=== PATIENT | male | born 1975 | race Caucasian/White ===

== ENCOUNTER → 2018-10-25 11:29 | Outpatient (CLI) | payer OTHER, SELFPAY ==
--- NOTE | 2018-10-25 11:44 | RAD_ITS ---
HISTORY: HEEL NUMBNESS COMPARISON: None FINDINGS: XR Foot Min 3 Views: No significant findings. No fracture or bony normality. Joint spaces appear preserved. No bony erosions. The plantar arch is maintained. As visualized, the soft tissues are negative. RAD/Foot min 3 Views IMPRESSION: Negative exam, right foot. No suspicious findings. at [id number] Reported and signed by: Jordan Parish MD Electronically Signed: Jordan Parish, at 4:16 EST Tel , Service support ,
--- NOTE | 2018-10-25 11:45 | RAD_ITS ---
HISTORY: LOW BACK PAIN AND RIGHT HEEL NUMBNESS COMPARISON: None FINDINGS: XR Spine Lumbar Min 5 views Lumbar vertebra show normal height and alignment. No fracture or suspicious bony lesion. L2-3 mild disc space narrowing accompanying by endplate spurring. The posterior elements appear intact. No spondylolisthesis. RAD/L/S Spine Min 4 Views IMPRESSION: 1. L2-3 degenerative disc disease and spondylosis. 2. Normal lumbar vertebral alignment. 3. No fracture or acute disease. at [id number] Reported and signed by: Jordan Parish MD Electronically Signed: Jordan Parish, at 4:43 EST Tel , Service support ,
== END ==
PROVIDERS: Referring Provider Nurse Practitioner Gerontology; Visit Provider Nurse Practitioner Gerontology
DX: R20.0 Anesthesia of skin (principal)
CPT/HCPCS: 72110; 73630

== ENCOUNTER → 2021-07-17 | Outpatient (CLI) | payer OTHER, SELFPAY ==
[2021-07-17 10:30] LABS: Absolute Lymphocyte Count 0.65 X10^3/uL (0.83-4.51); Absolute Neutrophil Count 3.1 X10^3/uL (2.0-7.7); Basophil# 0.02 X10^3/uL; Basophil% 0.4 % (0-1); Eosinophil# 0.01 X10^3/uL; Eosinophils% 0.2 % (0-5); Hematocrit 48.8 % (40-54); Hemoglobin 17.2 g/dL (13.0-16.5); Lymphocyte # 0.65 X10^3/ul (0.83-4.51); Lymphocyte % 13.3 % (19-41); Mean Corp Hgb Conc 35.2 g/dL (32-36); Mean Corpuscular Hgb 33.1 pg (27.0-32.0); Mean Platelet Vol. 10.1 fl (6.2-12.0); Monocyte# 1.14 X10^3/uL; Monocyte% 23.4 % (0-10); NRBC Flagged by Analyzer 0 % (0-5); Neutrophil # 3.05 X10^3/uL (2.7-7.7); Neutrophil % 62.7 % (47-70); Platelet Count 215 K/mm3 (150-450); RBC Distribution Width CV 11.8 % (11.6-14.6); RBC Distribution Width SD 40.6 fl (35.1-43.9); Red Blood Count 5.19 M/mm3 (4.6-6.2); White Blood Count 4.9 K/mm3 (4.4-11.0)
[2021-07-17 10:47] LABS: ALB/GLOB Ratio 1.1 RATIO (0.9-2.4); AST(SGOT) 36 U/L (15-37); Alanine Aminotransfer ALT/SGPT 45 U/L (16-61); Albumin, Serum 4.1 g/dL (3.2-5.0); Alkaline Phosphatase 59 U/L (45-117); Anion Gap 7 (5-15); BUN 13 mg/dL (7-18); BUN/Creat Ratio 11.4 RATIO (10-20); Calcium,Total 9.3 mg/dL (8.5-10.1); Chloride 105 mmol/L (98-107); Creatinine, Serum 1.14 mg/dL (0.70-1.30); EST Glomerular Filtration Rate 73 mL/min (>60); Est Glom Filt Rate - Afr Amer 88 mL/min (>60); Globulin 3.9 g/dL (2.2-4.2); Glucose 90 mg/dL (74-106); Sodium Level 141 mmol/L (136-145); Thyroid Stim Hormone (TSH) 1.14 uIU/mL (0.358-3.74); Troponin-I HS 8 pg/mL (3.0-78.0)
== END | disposition home or self-care (01) ==
PROVIDERS: Referring Provider Nurse Practitioner; Visit Provider Nurse Practitioner
DX: I48.91 Unspecified atrial fibrillation (principal)
CPT/HCPCS: 80053; 84443; 84484; 85025

== ENCOUNTER 2025-08-24 08:58 | Day surgery (SDC) | payer OTHER, SELFPAY ==
--- NOTE | 2025-08-22 15:14 | PAT.ANE_ITS ---
Pre-Assessment Diagnosis/Proposed Procedure Planned Operative Procedure(s): COLONOSCOPY Anesthesia History Anesthesia History - manager storage: Anesthesia History - manager storage Hx Hospitalization No 08/21/25 15:26 Any Problems With Anesthesia No 08/21/25 15:26 Cholinesterase deficiency No 08/21/25 15:26 You/Your Family Experience No 08/21/25 15:26 fever (hyperthermia) with Relationship Recent Exposure to Contagious Disease Does patient have nerve No 08/21/25 15:26 stimulator Patient instructed to have device shut off --Does patient have Pacemaker or ICD? When Was Last Pacemaker Check QUESTION #4 FULL TEXT: You/Your Family Experience fever (hyperthermia) with Anesthesia Last Oral Intake Last Oral intake: Last Oral Intake NPO since Meds taken in AM with sips of water? Meds patient instructed to take am of surgery PONV PONV - manager storage: PONV - manager storage Female No 08/21/25 15:26 HX of Motion Sickness No 08/21/25 15:26 HX of N/V After Surgery No 08/21/25 15:26 Non-Smoker Yes 08/21/25 15:26 Duration of Surgery greater No 08/21/25 15:26 than 60 minutes Number of Risk Factors 1 08/21/25 15:26 PONV Score Low Risk 08/21/25 15:26 Respiratory Assessment Respiratory Assessment - manager storage: Respiratory Tract Infection Hx - manager storage Hx Respiratory Tract Infection No 08/21/25 15:26 STOP Sleep Apnea STOP Sleep Apnea - manager storage: STOP Sleep Apnea - manager storage Hx Hypertension No 08/21/25 15:26 Hx Sleep Apnea No 08/21/25 15:26 CPAP BIPAP Do you snore loudly (louder No 08/21/25 15:26 than talking or can be heard Do you often feel tired/ No 08/21/25 15:26 fatigued/ sleepy during daytime? Has anyone observed you stop No 08/21/25 15:26 breathing during sleep? STOP Results Negative 08/21/25 15:26 QUESTION #5 FULL TEXT : Do you snore loudly (louder than talking or can be heard through closed doors)? 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 Specify any problems Hx of Preganancy in last 3 N/A 08/21/25 15:26 Months Nurse Filling Out Transfusion VCHRISTIN 08/21/25 15:26 & Questions: Date: 08/21/25 08/21/25 15: Time: 08/21/25 15:26 Patient unable to answer at this time (ie. confused, unrespo /Reproduction History /Reproductive History - manager storage: /Reproductive Hx- manager storage Hx Now Gestational Age (in weeks): EDC: Hx Hx Para Hx Section SAB PFSH Medical History (Updated 08/21/25 @ 15:26 by Heidi Brunson) Wears glasses Wears contact lenses Anxiety Non-smoker History of echocardiogram History of stress test Cardiology follow-up encounter Atrial fibrillation Shortness of breath Home Medications ?Medication ?Instructions ?Recorded ?Last Taken ?Type Lactobacillus acidophilus 10 100 mmu cells PO DAILY Unknown History billion cell capsule (NewFlora) cyanocobalamin (vitamin B-12) 1,000 mcg PO DAILY 08/02 Unknown History 1,000 mcg capsule digestive enzymes (CompleteGest 1 cap PO DAILY PRN SUP PLEMENT 08/02/25 Unknown History capsule) Allergy/AdvReac Type Severity Reaction Status Date / Time No Known Allergies Allergy Verified 08/21/25 15:23 Family History (Updated 07/27/25 @ 08:27 by Gayla Vergara) Mother Cancer cervical Grandmother Myocardial infarction Surgical History H/O inguinal hernia repair Social History (Updated 02/05/20 @ 09:33 by Migdalia Gardner PA, PA) Smoking Status: Never smoker alcohol intake: current alcohol intake frequency: holidays/special occasions only Audit: Pertinent Findings Pertinent Findings EKG Perinent findings: August 16, 2025. Sinus rhythm with first-degree AV block. Additional pertinent findings: 08/16/2025. CT with and without contrast. 1. Stable moderate dilation of the aortic root-4.6 cm. 2. No aortic stenosis. Recommendation Anesthesia Recommendation Anesthesia recommendation: OPTIMIZED for anesthesia
[2025-08-24] VITALS (8 sets, daily range): BP systolic 83–123; BP diastolic 61–78; PULSE 50–66; RESP 14–16; TEMP 36.5; O2SAT 95–98; BMI 23.8
[2025-08-24] MEDS: Lactated Ringers 1,000 ML 15 ML IV (09:30)
--- NOTE | 2025-08-24 09:31 | PCM.HP.STD ---
HPI - General General Date of Admission: 08/24/25 Date of Service: 08/24/25 Chief Complaint: Change in bowel habits HPI Narrative DONTAE ORTIZ, is a 49 M who presents with the Chief Complaint: bowel movements during the night Patient referred to GI for symptoms over the past 2 years. Patient notes his symptoms have worsened over the past year. He notes waking up almost daily between the hours of 3 to 5 AM with racing heart and need to have a bowel movement. This is frustrating for him as it will wake him up. He does endorse having a very stressful job which he thinks has affected his bowel movements. He denies having other bowel movements throughout the day. Bowel movements are typically soft but not watery. Patient did see his occupational therapist's assistant at his work which did a GI map. He is currently being treated with probiotics and fiber. He has been doing this for about a week and has not noticed a huge difference. He denies blood in his stool, constipation, abdominal pain, nausea vomiting or heartburn. Last colonoscopy was in 2011 in [place] due to rectal bleeding which was without abnormalities. [facility] Medical History Wears glasses Wears contact lenses Anxiety Non-smoker History of echocardiogram History of stress test Cardiology follow-up encounter Atrial fibrillation Shortness of breath Home Medications ?Medication ?Instructions ?Recorded ?Last Taken ?Type Lactobacillus acidophilus 10 100 mmu cells PO DAILY 08/02/25 Unknown History billion cell capsule (NewFlora) cyanocobalamin (vitamin B-12) 1,000 mcg PO DAILY 08/02/25 Unknown History 1,000 mcg capsule digestive enzymes (CompleteGest 1 cap PO DAILY PRN SUPPLEMENT 08/02/25 Unknown History capsule) Allergy/AdvReac Type Severity Reaction Status Date / Time No Known Allergies Allergy Verified 08/24/25 09:25 Family History Mother Cancer cervical Grandmother Myocardial infarction Surgical History H/O inguinal hernia repair Social History Smoking Status: Never smoker alcohol intake: current alcohol intake frequency: holidays/special occasions only ROS Constitutional Constitutional: Denies fatigue, fever(s), poor appetite, weight gain or weight loss Gastrointestinal Gastrointestinal: Denies belching, bloating, change in bowel habits, change in stool character, chewing difficulty, coffee ground emesis, constipation, cramping, diarrhea, dyspepsia, dysphagia, early satiety, excessive flatus, fecal incontinence, heartburn, hematemesis, hematochezia, hemorrhoids, loose stools, melena, nausea, odynophagia, rectal bleeding, tenesmus, vomiting or weight changes Vital Signs Vital Signs Vital Signs: 08/24/25 09:25 08/24/25 09:25 Temperature 97.7 F L Temperature Source Temporal Pulse Rate 66 Respiratory Rate 16 Respiratory Pattern Normal Blood Pressure 123/78 H Blood Pressure Mean 93 Pulse Ox 98 Oxygen Delivery Method Room Air Weight Weight: 180 lb 15.992 oz Body Mass Index (BMI) 23.8 Assessment & Plan Assessment/Plan (1) Abnormal bowel habits: PLAN: Assessment and Plan Assessment and Plan (1) Abnormal bowel habits: Status: Acute Plan: Dontae is a 49-year-old male patient here today for evaluation of abnormal bowel habits over the past 2 years. Patient endorsing waking up between hours at 3 to 5 AM with tachycardia and then need to have a bowel movement. Patient does not have bowel movements any other time throughout the day. Bowel movements are typically soft. 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 Last colonoscopy was in 2011 due to rectal bleeding with normal findings. Patient did have stool testing done with his occupational therapist's assistant and GI map stool testing was done. Per these results calprotectin was normal, elastase normal and C. difficile negative. Patient's occupational therapist's assistant started him on probiotic and fiber to kill off infection. The GI tract is filled with different bacteria and this does not necessarily mean it is causing infection. I suspect most of his symptoms are due to stress and anxiety related to work however will order colonoscopy to rule out inflammation within his colon. Patient was agreeable to procedure. - Colonoscopy - Follow-up after
--- OUTSIDE RECORDS SUMMARY | 2025-08-24 09:36 | XMS RPT_ITS | CCD ---
Author Organization [facility] CliniSyme Care Team Providers Care Coiled Tubing Supervisor Name Role Phone MONTES DE OCA, JOSE D Unavailable Unavailable MONTES DE OCA, JOSE D Unavailable Unavailable MONTES DE OCA, JOSE D Unavailable Unavailable MONTES DE OCA, JOSE D Unavailable Unavailable MONTES DE OCA, JOSE D Unavailable Unavailable MONTES DE OCA, JOSE D Unavailable Unavailable MONTES DE OCA, JOSE D Unavailable Unavailable MONTES DE OCA, JOSE D Unavailable Unavailable MONTES DE OCA, JOSE D Unavailable Unavailable MONTES DE OCA, JOSE D Unavailable Unavailable Klarissa, Babita Unavailable Stan Javier Unavailable Ze Morales Unavailable Unavailable Lizbeth Ventura Unavailable Unavailable Lizbeth Pickett Unavailable Unavailable Unavailable Unavailable Klarissa, Babita Unavailable Unavailable Klarissa, Babita Unavailable Unavailable Klarissa, Babita Unavailable Unavailable Klarissa, Babita Unavailable Stan Javier Unavailable Ze Morales Unavailable Unavailable Ciesa, Carolina Unavailable Lizbeth Ventura Unavailable Unavailable Unavailable Unavailable Babita Durán DO Unavailable Dr. Stan Javier Unavailable [phone] Ze Brand LPN Unavailable Unavailable Messenger Lizbeth BARROS Unavailable Unavailable Ciesa STEEL PLATE CAULKER, Carolina Unavailable Unavailable Unavailable Monika Alonzo LPN Unavailable Unavailable Gravius DARSHAN, Denise Unavailable Unavailable Sruthi Dillon Unavailable Babita Durán DO Primary Care Provider Sruthi Dillon MD Unavailable Babita Durán DO Primary Care Provider Sruthi Dillon MD Unavailable Babita Durán DO Primary Care Provider Klarissa SAINI, Dr. Jc Primary Care Provider Klarissa SAINI, Dr. Jc Referring Provider Sugar Shultz Attending Provider DILLON, SRUTHI Referring Unavailable KLARISSA, BABITA SULLIVAN Primary Care Unavailab amador DILLONESSENCESRUTHI Attending Unavailable DILLON, SRUTHI Referring Unavailable KLARISSA, BABITA SULLIVAN Primary Care Unavailab le DILLON, SRUTHI Referring Unavailable KLARISSA, BABITA SULLIVAN Primary Care Unavailab le Klarissa, Babita Primary Care Unavailable Klarissa, Babita Referring Unavailable Friend, Carlos Attending Unavailable Klarissa, Babita Primary Care Unavailable Klarissa, Babita Referring Unavailable Danita Whitehead Attending Unavailable Klarissa, Babita Primary Care Unavailable Klarissa, Babita Referring Unavailable Sugar Felipe Attending Unavailable Medications Current Medications Medication Drug Class(es) Dates Sig (Normalized) Sig (Original) apixaban 5 mg oral tablet (6 sources) Factor Xa Inhibitor Start: 11-17-2023 take 1 tablet by mouth twice daily apixaban (ELIQUIS) 5 mg tab(s) Indications: Paroxysmal atrial fibrillation (HCC) Take 1 tablet by mouth two times a day. 60 tablet 3 11/17/2023 Active Start: 07-17-2021 End: 07-31-2021 take 1 tablet by mouth twice daily Eliquis 5 MG Oral Tablet 1 (one) Tablet bid for 14 days Quantity: 28 {Tablet} Refills: 0 Ordered: 02-Aug-2021 GravDenise obrien CMA Start : 17-Jul-2021 End : 31-Jul-2021 Inactive iv contrast (will be provided with radiology test) (4 sources) Start: 06-05-2025 End: 06-06-2025 inject 1 dose intravenously once iv contrast (will be provided with radiology test) Indications: Disorder of artery or arteriole CTA Chest. No IV access, insert saline lock prior to the sedation, infusion, injection for imaging exam. Discontinue saline lock post exam. If Pt. has a central line or IVAD, may access for administration according to line specific nursing protocol. Once exam is complete flush line and de-access according to line specific nursing protocol in the CT contrast administration guidelines link. 1 each 06/05/2025 06/06/2025 Active Start: 01-09-2025 End: 01-10-2025 inject 1 dose intravenously once iv contrast (will be provided with radiology test) CTA Chest. No IV access, insert saline lock prior to the sedation, infusion, injection for imaging exam. Discontinue saline lock post exam. If Pt. has a central line or IVAD, may access for administration according to line specific nursing protocol. Once exam is complete flush line and de-access according to line specific nursing protocol in the CT contrast administration guidelines link. 1 Each 01/09/2025 01/10/2025 Active Start: 05-25-2023 End: 05-26-2023 inject 1 dose intravenously once iv contrast (will be provided with radiology test) Indications: Aortic root dilatation (HCC) MRA Card Thor Abd Aorta Inject, intravenously, once for 1 dose.No IV access, insert saline lock prior to the beginning of sedation, infusion, injection of imaging exam.Discontinue saline lock post exam.If Pt has a central line or IVAD, may access for administration according to line specific nursing protocol.Once exam is complete flush line and de-access according to line specific nursing protocol in the MR contrast administration guidelines link 1 Each 0 05/25/2023 05/26/2023 Active Comment on above: MRA Card Thor Abd Ao rta Inject, intravenously, once for 1 dose.No IV access, insert saline lock prior to the beginning of sedation, infusion, injection of imaging exam.Discontinue saline lock post exam.If Pt has a central line or IVAD, may access for administration according to line specific nursing protocol.Once exam is complete flush line and de-access according to line specific nursing protocol in the MR contrast administration guidelines link 24 hr metoprolol succinate 25 mg extended release oral tablet (5 sources) beta-Adrenergic Jeremiah Start: 11-17-20 take 1 tablet by mouth once daily as needed metoprolol succinate ER (TOPROL XL) 25 mg 24 hr tablet Indications: Paroxysmal atrial fibrillation (HCC) Take 1 tablet by mouth once daily as needed. Take when you have an episode of afib 90 tablet 1 11/17/2023 Active MULTIVITAMIN ORAL (10 sources) MULTIVITAMIN ORA L Take by mouth once daily. Active MULTIVITAMIN ORA L Take by mouth once daily. 0 Active Comment on above: Take by mouth once d aily. Completed/Discontinued Medications Medication Drug Class(es) Dates Sig (Normalized) Sig (Original) amoxicillin 875 mg oral tablet (1 source) Penicillin-class Antibacterial Start: 02-05-2020 End: 07-27-2025 take 1 tablet by mouth twice daily Amoxicillin 875 mg tablet Discontinued 875 mg PO TWICE A DAY 20 0 February 05, 2020 1:00am July 27, 2025 7:42am clotrimazole 10 mg oral lozenge (9 sources) Azole Antifungal Start: 10-25-2018 End: 04-05-2019 Clotrimazole 10 MG Mouth/Throat Lozenge 1 (one) Jamil PO 5x/day x 10 days for 0 days Quantity: 50 {Jamil} Refills: 0 Ordered: 05-Apr-2019 Ze Brand LPN Start : 25-Oct-2018 End : 05-Apr-2019 Inactive cyanocobalamin, vitamin B-12, (VITAMIN B-12 ORAL) (2 sources) End: 05-25-2023 cyanocobalamin, vitamin B-12, (VITAMIN B-12 ORAL) Take by mouth once daily. 0 05/25/2023 Discontinued cyanocobalamin, vitamin B-12, (VITAMIN B-12 ORAL) Take by mouth once daily. 0 Active Comment on above: Take by mouth once d aily. dexamethasone 6 mg oral tablet (1 source) Corticosteroid Start: Dexamethasone 6 MG Oral Tablet 1 (one) Tablet daily for 5 days for 0 days Quantity: 6 {Tablet} Refills: 0 Ordered: 19-Jul-2021 Denise Fernandez CMA Start : 19-Jul-2021 Active diphenhydrAMINE hydrochloride 25 mg oral capsule (9 sources) Histamine-1 Receptor Antagonist Start: End: take 1 capsule by mouth once daily Benadryl Allergy 25 MG Oral Capsule 1 (one) Capsule daily for 0 days Quantity: 30 {Capsule} Refills: 0 Ordered: 25-Oct-2018 Ze Brand LPN Start : 23-Jun-2016 End : 25-Oct-2018 Discontinued doxycycline hyclate 100 mg oral capsule (1 source) Tetracycline-class Drug Start: End: Doxycycline Hyclate 100 MG Oral Capsule 1 (one) Capsule bid for 7 days for 7 days Quantity: 14 {Capsule} Refills: 0 Ordered: 19-Jul-2021 Denise Fernandez CMA Start : 19-Jul-2021 End : 26-Jul-2021 Inactive ibuprofen 600 mg oral tablet (2 sources) Nonsteroidal Anti-inflammatory Drug Start: End: 023 take 1 tablet by mouth every eight hours as needed ibuprofen (MOTRIN) 600 mg tablet Take 1 tablet by mouth every 8 hours as needed for pain (and swelling). 21 tablet 0 05/09/2021 05/25/2023 Discontinued Comment on above: Take 1 tablet by raphael th every 8 hours as needed for pain (and swelling). ivermectin 3 mg oral tablet (3 sources) Antiparasitic, Pediculicide Start: Ivermectin 3 MG Oral Tablet 4 Tablet once daily for 7 days for 0 days Quantity: 28 {Tablet} Refills: 0 Ordered: 19-Jul-2021 Denise Fernandez CMA Start : 19-Jul-2021 Active Comments: covid positive Start: 05-03-2021 take 1 tablet by raphael th every week Ivermectin 3 MG Oral Tablet tad Tablet qweek for 0 days Quantity: 30 {Tablet} Refills: 3 Ordered: 03-May-2021 Babita Durán DO, DO, Kathleen Start : 03-May-2021 Active Comment on above: covid positive mupirocin 0.02 mg/mg nasal ointment (9 sources) RNA Synthetase Inhibitor Antibacterial Start: 7 End: 8 Bactroban Nasal 2 % Nasal Ointment 1 (one) Ointment bid for 0 days Quantity: 20 {Package} Refills: 0 Ordered: 25-Oct-2018 Ze Brand LPN Start : 24-Apr-2017 End : 25-Oct-2018 Discontinued Comments: substitute generic Comment on above: substitute generic omeprazole 40 mg delayed release oral capsule (6 sources) Proton Pump Inhibitor Start: 0 End: 1 take 1 capsule by mouth once daily Omeprazole 40 MG Oral Capsule Delayed Release 1 (one) Capsule qd for 0 days Quantity: 30 {Capsule} Refills: 2 Ordered: 03-May-2021 Denise Fernandez CMA Start : 28-Feb-2020 End : 03-May-2021 Inactive predniSONE 20 mg oral tablet (10 sources) Start: End: 1 take 1 tablet by mouth twice daily, then take 1 tablet by mouth once daily, then take 0.5 tablet by mouth once daily predniSONE 20 MG Oral Tablet tad Tablet uad for 12 days Refills: 0 Ordered: 03-May-2021 Babita Durán DO, DO, Kathleen Start : 03-May-2021 End : 15-May-2021 Inactive Comments: with [id number] bid for 4days then one tab daily for 4days then 1/2 tab daily for 4days Start: 04-24-2021 End: 05-01-2021 take 3 tablets by mouth once daily at mealtime predniSONE 10 MG Oral Tablet 3 (three) Tablet daily for 7 days Quantity: 21 {Tablet} Refills: 0 Ordered: 24-Apr-2021 Nadia Sellers CNP Start : 24-Apr-2021 End : 01-May-2021 Inactive Comments: with food Start: 02-05-2020 End: 07-27-2025 Prednisone 10 mg tablet Discontinued 10 mg PO .COMPLEX 30 0 February 05, 2020 1:00am July 27, 2025 7:42am Take 4 pills for 3 days, 3 pills for 3 days, 2 pills for 3 days, take 1 pill for 3 days Start: 06-23-2016 End: 06-30-2016 take 3 tablets by mouth once daily at mealtime PredniSONE 10 MG Oral Tablet 3 (three) Tablet daily for 7 days Quantity: 21 {Tablet} Refills: 0 Ordered: 23-Jun-2016 Nadia Sellers CNP Start : 23-Jun-2016 End : 30-Jun-2016 Inactive Comments: with food Comment on above: with food with [id number] bid fo r 4days then one tab daily for 4days then 1/2 tab daily for 4days sulfamethoxazole 800 mg / trimethoprim 160 mg oral tablet (9 sources) Dihydrofolate Reductase Inhibitor Antibacterial, Sulfonamide Antimicrobial Start: 04-24-20 17 End: 10-25-20 18 take 1 tablet by mouth twice daily Sulfamethoxazole-Tr imethoprim 800-160 MG Oral Tablet 1 (one) Tablet bid for 0 days Quantity: 14 {Tablet} Refills: 0 Ordered: 25-Oct-2018 Sunday INSTRUCTIONAL SUPPORT ASSISTANTZe Boateng Start : 24-Apr-2017 End : 25-Oct-2018 Discontinued valACYclovir 1000 mg oral tablet (8 sources) Herpesvirus Nucleoside Analog DNA Polymerase Inhibitor, Herpes Simplex Virus Nucleoside Analog DNA Polymerase Inhibitor, Herpes Zoster Virus Nucleoside Analog DNA Polymerase Inhibitor Start: 04-05-20 19 End: 04-24-20 21 take 1 tablet by mouth once daily Valtrex 1 GM Oral Tablet 1 (one) Tablet qd for 5 days Quantity: 5 {Tablet} Refills: 1 Ordered: 24-Apr-2021 Sunday EATONZe Start : 05-Apr-2019 End : 24-Apr-2021 Inactive Zinc (2 sources) End: 05-25-20 23 ZINC ORAL Take by mouth once daily. 0 05/25/2023 Discontinued ZINC ORAL Take b y mouth once daily. 0 Active Comment on above: Take by mouth once d aily. NEGATED: Highlighted row has not occurred!drug or medication (3 sources) No Known Histori harley Medications NEGATED: Highlighted row has not occurred!No Known Historical Medications (6 sources) No Known Histori harley Medications Problems Active Problems Problem Classification Problem Date Documented Date Episodic/Chronic Allergic reactions (17 sources) Contact dermatitis due to poison wayne; Translations: [Poison wayne] 10-25-2018 Episodic Aortic; peripheral; and visceral artery aneurysms (2 sources) Aortic root dilatation; Translations: [Thoracic aortic ectasia] Chronic Cardiac dysrhythmias (18 sources) Atrial fibrillation; Translations: [Atrial fibrillation] Onset: 07-17-2021 07-24-2021 Chronic Comment on above: ws there for cardiov ersion but went into normal rhythm before did it -- Neoplasms of unspecified nature or uncertain behavior (18 sources) Neoplasm of uncertain behavior of skin; Translations: [Neoplasm of uncertain behavior of skin] 10-25-2018 Episodic Comment on above: at his conv sched ave bx to remove Nonspecific chest pain (6 sources) Chest pain; Translations: [Burning in the chest] 04-24-2021 Episodic Other and unspecified benign neoplasm (18 sources) Lipoma of back; Translations: [Lipoma of back] 10-25-2018 Episodic Other and unspecified benign neoplasm (9 sources) Lipoma of abdominal wall; Translations: [Lipoma of skin of abdomen] 04-24-2017 Episodic Other circulatory disease (6 sources) Disorder of artery; Translations: [Disorder of arteries and arterioles, unspecified] 01-09-2025 Chronic Other circulatory disease (1 source) Disorder of arteries and arterioles, unspecified; Translations: [Disorder of artery or arteriole] Onset: 08-16-2025 Chronic Other ear and sense organ disorders (8 sources) Impacted cerumen, bilateral; Translations: [Impacted cerumen of bilateral ears] 10-25-2018 Episodic Other lower respiratory disease (13 sources) Cough; Translations: [Cough] 04-24-2021 Episodic Other upper respiratory disease (17 sources) Pain in throat Episodic Other upper respiratory infections (9 sources) Sore throat symptom; Translations: [Sore throat] 10-25-2018 Episodic Pneumonia (except that caused by tuberculosis or sexually transmitted disease) (2 sources) Severe acute respiratory syndrome Episodic Residual codes; unclassified (20 sources) Body mass index (BMI) 23.0-23.9, adult; Translations: [Body mass index (BMI) 24.0-24.9, adult] 10-25-2018 Episodic Residual codes; unclassified (6 sources) Non-smoker; Translations: [Nonsmoker] 04-24-2021 Episodic Residual codes; unclassified (1 source) Immunization not carried out due to patient having had the disease; Translations: [Vaccination hesitancy by patient] 07-24-2021 Episodic Viral infection (17 sources) Herpes labialis; Translations: [Herpes labialis] 04-05-2019 Episodic Comment on above: cold sore Past or Other Problems Problem Classification Problem Date Documented Da te Episodic/Chronic Cardiac dysrhythmias (20 sources) Palpitations; Translations: [Palpitations] Onset: 04-30-2021 07-24-2021 Episodic Joint disorders and dislocations; trauma-related (10 sources) Acute meniscal tear, medial; Translations: [Complex tear of medial meniscus, current injury, right knee, initial encounter] Onset: 04-30-2021 04-30-2021 Episodic Malaise and fatigue (2 sources) Other fatigue; Translations: [Other fatigue] Onset: 02-16-2018 Episodic Mycoses (9 sources) Candidiasis of mouth; Translations: [Thrush, oral] Resolved: 02-28-2020 10-25-2018 Episodic Other ear and sense organ disorders (1 source) Impacted cerumen of bilateral ears; Translations: [Bilateral impacted cerumen] 04-05-2019 Other nervous system disorders (9 sources) Numbness of foot ; Translations: [Numbness of right foot] Resolved: 02-28-2020 10-25-2018 Episodic Comment on above: Right heel numbness. Other skin disorders (9 sources) Eruption; Translations: [Rash] Resolved: 02-28-2020 10-25-2018 Episodic Other upper respiratory disease (9 sources) Lesion of nose; Translations: [Nasal lesion] Resolved: 02-28-2020 10-25-2018 Episodic Unclassified (12 sources) Patient encounter status; Translations: [Annual Medicare Physical WITH abnormal findings (Renamed from Encounter for general adult medical examination with abnormal findings)] 10-25-2018 Unclassified (19 sources) Body mass index (BMI) 23.0-23.9, adult; Translations: [Body mass index 20-24 - normal] 04-05-2019 Unclassified (20 sources) Nonsmoker; Translations: [Non-smoker] 10-25-2018 Unclassified (9 sources) Lipoma of skin of abdomen Unclassified (20 sources) Unclassified (17 sources) Bilateral impacted cerumen Unclassified (9 sources) Rash Unclassified (15 sources) Poison wayne Unclassified (9 sources) Nasal lesion Unclassified (18 sources) BMI 24.0-24.9, adult; Translations: [Body mass index 20-24 - normal] 04-05-2019 Unclassified (9 sources) Thrush, oral Unclassified (9 sources) Numbness of right foot Unclassified (18 sources) BMI 23.0-23.9, adult Unclassified (6 sources) Burning in the chest Unclassified (1 source) Vaccination hesitancy by patient Viral infection (3 sources) Disease caused by 2019-nCoV Results Test Name Value Interpretation Reference Range Facility MR/PATIleana 08-22-2025 MR/PAT.[facility] [place] [facility] [address] [place] [address] PAT - Anesthesia 08/22/25 1514 MR#: [id number] Acct: [id number] Name: DONTAE VELASQUEZ Rep #: [id number] : 1975 49 From: Iraj Pérez MD PCP: Dr. Babita Durán, DO Status:PRE SDC Y Race: C Location: EN Pre-Assessment Diagnosis/Proposed Procedure Planned Operative Procedure(s): COLONOSCOPY Anesthesia History Anesthesia History - health educator: Anesthesia History - health educator Hx Hospitalization No 08/21/25 15:26 Any Problems With Anesthesia No 08/21/25 15:26 Cholinesterase deficiency No 08/21/25 15:26 You/Your Family Experience No 08/21/25 15:26 fever (hyperthermia) with Relationship Recent Exposure to Contagious Disease Does patient have nerve No 08/21/25 15:26 stimulator Patient instructed to have device shut off --Does patient have Pacemaker or ICD? When Was Last Pacemaker Check QUESTION #4 FULL TEXT: You/Your Family Experience fever (hyperthermia) with Anesthesia Last Oral Intake Last Oral intake: Last Oral Intake NPO since Meds taken in AM with sips of water? Meds patient instructed to take am of surgery PONV PONV - health educator: PONV - health educator Female No 08/21/25 15:26 HX of Motion Sickness No 08/21/25 15:26 HX of N/V After Surgery No 08/21/25 15:26 Non-Smoker Yes 08/21/25 15:26 Duration of Surgery greater No 08/21/25 15:26 than 60 minutes Number of Risk Factors 1 08/21/25 15:26 PONV Score Low Risk 08/21/25 15:26 Respiratory Assessment Respiratory Assessment - health educator: Respiratory Tract Infection Hx - health educator Hx Respiratory Tract Infection No 08/21/25 15:26 STOP Sleep Apnea STOP Sleep Apnea - health educator: STOP Sleep Apnea - health educator Hx Hypertension No 08/21/25 15:26 Hx Sleep Apnea No 08/21/25 15:26 CPAP BIPAP Do you snore loudly (louder No 08/21/25 15:26 than talking or can be heard Do you often feel tired/ No 08/21/25 15:26 fatigued/ sleepy during daytime? Has anyone observed you stop No 08/21/25 15:26 breathing during sleep? STOP Results Negative 08/21/25 15:26 QUESTION #5 FULL TEXT : Do you snore loudly (louder than talking or can be heard through closed doors)? 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 Specify any problems Hx of Preganancy in last 3 N/A 08/21/25 15:26 Months Nurse Filling Out Transfusion VCHRISTIN 08/21/25 15:26 Questions: Date: 08/21/25 08/21/25 15:26 Time: 15:08/21/25 15:26 Patient unable to answer at this time (ie. confused, unrespo /Reproduction History /Reproductive History - health educator: /Reproductive Hx- health educator Hx Now Gestational Age (in weeks): EDC: Hx Hx Para Hx Section SAB PFSH Medical History (Updated 08/21/25 @ 15:26 by Heidi Brunson) Wears glasses Wears contact lenses Anxiety Non-smoker History of echocardiogram History of stress test Cardiology follow-up encounter Atrial fibrillation Shortness of breath Home Medications ???Medication ???Instructions ???Recorded ???Last Taken ???Type Lactobacillus acidophilus 10 100 mmu cells PO DAILY 08/02/25 Un known History billion cell capsule (NewFlora) cyanocobalamin (vitamin B-12) 1,000 mcg PO DAILY 08/02/25 Unknow n History 1,000 mcg capsule digestive enzymes (CompleteGest 1 cap PO DAILY PRN SUPPLEMENT 02/21 Unknown History capsule) Allergy/AdvReac Type Severity Reaction Status Date / Time No Known Allergies Allergy Verified 08/21/25 15:23 Family History (Updated 07/27/25 @ 08:27 by Gayla Vergara) Mother Cancer cervical Grandmother Myocardial infarction Surgical History H/O inguinal hernia repair Social History (Updated 02/05/20 @ 09:33 by Migdalia MORLEY, PA) Smoking Status: Never smoker alcohol intake: curr (more content not included)... Normal [facility] CTA CHEST (GATED) W IVCONon 08-16-2025 CTA CHEST (GATED) W IVCON * * *Final Report* * * DATE OF EXAM: Aug 16 2025 2:41PM JQC 0125 - CTA CHEST (GATED) W IVCON / PROCEDURE REASON: Disorder of artery or arteriole * * * * Physician Interpretation * * * * CTA Aorta chest Direct Image Comparison: MRA 12/2019 HISTORY: 49 years old Male with with chronic h/o dilated thoracic aorta for interval surveillance, along with paroxysmal atrial fibrillation. Evaluation for interval change. There is request to define thoracic and aortic anatomy TECHNIQUE: SCANNER: Siemens Definition Force Dual source [id number] scanner PROTOCOL: Prospectively triggered helical high-pitch acquisitions (triggered Flash-mode) was performed following the intravenous administration of contrast material. Scan Range: thoracic inlet to the diaphragm CT Dose-Length Product (DLP): 215 mGy*cm CT Dose Reduction Employed: Automated exposure control(AEC) and iterative recon CONTRAST: IV administration of 80 ml Omnipaque 350 Scan acquisition: uncomplicated Macro Version: [id number] For optimization of anatomic evaluation, advanced 3-D off-line postprocessing was performed on a dedicated workstation by the interpreting physician. STUDY LIMITATIONS: None. RESULT: LINES, TUBES and DEVICES: None CHEST: Chest wall anatomy: unremarkable. LUNGS: mild bibasilar atelectasis. MEDIASTINUM: unremarkable. PERICARDIUM: unremarkable CENTRAL PULMONARY ARTERY: normal dimensions. Assessment is limited due to limited contrast enhancement. CENTRAL VENOUS and PULMONARY VENOUS RETURN: normal. Coronary Sinus: normal size CORONARY ANATOMY: normal origin of the coronary arteries. No definitive evidence of calcified atherosclerotic changes of the coronary arteries. CARDIAC CHAMBERS: LEFT VENTRICLE: normal size. RIGHT VENTRICLE: normal size Left Atrium: mildly dilated. FREDY: normal. Right Atrium: mildly dilated MITRAL VALVE: assessment is limited in the current study - no leaflet calcification. No annular calcification TRICUSPID and PULMONIC VALVE: appear unremarkable. AORTIC VALVE: assessment is limited in this single-phase study, appears trileaflet. No leaflet calcification. AORTA: Pathology: No acute aortic pathology. Intervention: None Complications: n/a Aortic Size: Dilation ascending aorta. The remaining segments of the thoracic aorta are normal in size STJ: maintained. Wall Changes: no atherosclerotic changes. Arch Branch Vessels: Patent, normal size proximal segments of the arch branch vessels, without evidence of wall changes. Normal origin of the arch branch vessels. AORTIC DIMENSIONS: [place] AORTIC ROOT: 4.6 cm measured [id number] area 15.0 cm2, indexed 8.1 cm2/m (4.6 cm on direct comparison with MRA 12/2019) mid ASCENDING THORACIC AORTA: 3.3 cm mid AORTIC ARCH: 2.9 cm proximal DESCENDING THORACIC AORTA: 2.6 cm limited upper ABDOMEN: unremarkable BONES and SOFT TISSUES: degenerative changes of the thoracic spine. Cystic versus hemangioma lesion upper thoracic spine.. Workers' Compensation Claims Supervisor (topogram) images: No additional findings. IMPRESSION: 1. Stable moderate dilation of the aortic root (4.6 cm, 15.0 cm2, 8.1 cm2/m). The remaining thoracic aorta is normal in course, caliber and has no atherosclerotic changes. No acute aortic pathology identified. Official Court Reporter: [facility] Transcribe Date/Time: Aug 16 2025 5:30P Dictated by : ARMAND MOTA MD This examination was interpreted and the report reviewed and electronically signed by: ARMAND MOTA MD on Aug 16 2025 6:01PM EST [id number] Normal [facility] 07-27-2025 CNPN Telephone (CARCMN) DONTAE VELASQUEZ ([id number]) 1975 M Date Time Provider Department 07/27/25 SRUTHI DILLON [facility] During your visit today, we recorded the following information about you: Ewa Lee 07/27/2025 4:05 PM Signed Request for cardiac clearance Procedure: Colonoscopy w/ MAC Sedatiom Procedure Date: 08/04/2025 [facility] Last Visit: 11/17/2023. Patient has upcoming appt 08/16/25. Informed facility clearance cannot be given until the patient is seen by Dr. Dillon on 08/16. Ewa Lee Brim Molder July 27, 2025 4:03 PM Allergies As of Date: 07/27/2025 (No Known Allergies) Date Reviewed: 11/26/2023 Reviewed by: Sruthi Dillon MD - Fully Assessed Reason for Visit: Cardiac Clearance [4105] Prescriptions as of 07/28/2025 - metoprolol succinate ER (TOPROL XL) 25 mg 24 hr tablet Take 1 tablet by mouth once daily as needed. Take when you have an episode of afib - apixaban (ELIQUIS) 5 mg tab(s) Take 1 tablet by mouth two times a day. - MULTIVITAMIN ORAL Take by mouth once daily. Problem List As Of Date 07/27/2025 Noted Resolved Complex tear of medial meniscus of right knee a*04/30/2021 Palpitations [R00.2] 04/30/2021 Atrial fibrillation (HCC) s/p DCCV (07/18/2021) *07/17/2021 Encounter Status:Closed by ROSE MARY CLAUDIO on 07/28/25 Normal [facility] Gastroenterology Visit Repor ton 07-27-2025 Gastroenterology Visit Report [facility] [address] [place] [address] OFFICE VISIT Date of Service: 07/27/25 MR#: [id number] Acct: [id number] Name: DONTAE VELASQUEZ Rep #: [id number] : 1975 Provider: MILLI Pearce Age/Sex: 49/M Location: [facility] Status: Signed Intake Vital Signs 02/05/20 09:13 Height 6 ft Intake Visit Reasons: PRE COLONOSCOPY Chief Complaint: bowel movements during the night Allergies No Known Allergies Allergy (Unverified 02/05/20 09:13) [facility] Medical History (Updated 07/27/25 @ 08:27 by Gayla Vergara) Atrial fibrillation Shortness of breath Family History (Updated 07/27/25 @ 08:27 by Gayla Vergara) Mother Cancer cervical Grandmother Myocardial infarction Social History (Updated 02/05/20 @ 09:33 by Migdalia MORLEY, PA) Smoking Status: Never smoker alcohol intake: current alcohol intake frequency: holidays/special occasions only HPI HPI Chief Complaint: bowel movements during the night Details: DONTAE VELASQUEZ, is a 49 M who presents to the office today for establishment. Patient referred to GI for symptoms over the past 2 years. Patient notes his symptoms have worsened over the past year. He notes waking up almost daily between the hours of 3 to 5 AM with racing heart and need to have a bowel movement. This is frustrating for him as it will wake him up. He does endorse having a very stressful job which he thinks has affected his bowel movements. He denies having other bowel movements throughout the day. Bowel movements are typically soft but not watery. Patient did see his shipper receiver at his work which did a GI map. He is currently being treated with probiotics and fiber. He has been doing this for about a week and has not noticed a huge difference. He denies blood in his stool, constipation, abdominal pain, nausea vomiting or heartburn. Last colonoscopy was in 2011 in [place] due to rectal bleeding which was without abnormalities. ROS Const Constitutional: No fatigue, fever(s) or weight change ENT ENT: No difficulty swallowing Gastro GI: Positive for bloating, change in bowel habits and excessive flatus; No abdominal pain, belching, change in stool character, coffee ground emesis, constipation, cramping, diarrhea, heartburn, difficulty swallowing, feeling full early, incontinent of stools, Vo miting blood/hematemesis, Blood in stool, loose stools, Black,tarry stools, nausea/dyspepsia, pain with swallowing, vomiting or other Musc Musculoskeletal: No joint pain Skin Skin: No yellowing of the eye or itchy eyes Psych Psychiatric: Positive for anxiety and No depression Endo Endocrine: No fatigue or weight change Aller/Imm Allergy/Immunologic: No itchy eyes Denis/Lymp Hematologic/Lymphatic: No easy bleeding or easy bruising Exam Const General: cooperative, healthy appearing and comfortable [facility] Head: normal to inspection Eyes General: appearance normal, both eyes and all related structures Neck Neck: normal visual inspection Chest Chest palpation inspection: normal inspection of the chest Resp Effort Inspection: normal respiratory effort Cardio Rate: regular rate Rhythm: regular rhythm GI Inspection: normal to inspection Auscultation: normal bowel sounds Palpation: soft and nontender Assessment and Plan Assessment and Plan (1) Abnormal bowel habits: Status: Acute Plan: Dontae is a 49-year-old male patient here today for evaluation of abnormal bowel habits over the past 2 years. Patient endorsing waking up between hours at 3 to 5 AM with tachycardia and then need to have a bowel movement. Patient does not have bowel movements any other time throughout the day. Bowel movements are typically soft. 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 Last colonoscopy was in 2011 due to rectal bleeding with normal findings. Patient did have stool testing done with his shipper receiver and GI map stool testing was done. Per these results calprotectin was normal, elastase normal and C. difficile negative. Patient's shipper receiver started him on probiotic and fiber to kill off infection. The GI tract is filled with different bacteria and this does not necessarily mean it is causing infection. I suspect most of his symptoms are due to stress and anxiety related to work however will order colonoscopy to rule out inflammation within his colon. Patient was agreeable to procedure. - Colonoscopy - Follow-up after Coding Level of Care Code Off vis,new,level 4 Diagnoses Abnormal bowel habits R19.8 07/27/25 0838 Date Sugar Davis Signature: Date (if applicable) CC: Normal [facility] MRA CHEST CARDIOVASCULAR WO IVCONon 07-31-2023 [facility] 2019 Novel Coronavirus (COVI D-19), NAKUL ([id number])Ordered By: Guest Service Aide on 07-17-2021 2019 Novel Coronavirus (COVID-19), NAKUL ([id number]) Detected Abnormal [facility]; [facility] Work Phone: Comment on above: Client Requested [place] gPatients who have a positive COVID-19 test result may now havetreatment options. Treatment options are available for patientswith mild to moderate symptoms and for hospitalized patients.Visit our website at [email or web address] forresources and information.This nucleic acid amplification test was developed and its performancecharacteristics determined by [employer]. Nucleic acidamplification tests include RT-PCR and TMA. This test has not beenFDA cleared or approved. This test has been authorized by FDA underan Emergency Use Authorization (EUA). This test is only authorizedfor the duration of time the declaration that circumstances existjustifying the authorization of the emergency use of in vitrodiagnostic tests for detection of SARS-CoV-2 virus and/or diagnosisof COVID-19 infection under section 564(b)(1) of the Act, 21 U.S.C.360bbb-3(b) (1), unless the authorization is terminated or revokedsooner.When diagnostic testing is negative, the possibility of a falsenegative result should be considered in the context of a patient'srecent exposures and the presence of clinical signs and symptomsconsistent with COVID-19. An individual without symptoms of COVID-19and who is not shedding SARS-CoV-2 virus would expect to have anegative (not detected) result in this assay. PATIENT NOT FASTINGP ERFORMED BY: ABUNDIO [facility] [id number] ANES POSTPROC EVALon 021 ANES POSTPROC EVAL HNO ID: [id number] Author: Braden Chau III, MD Service: Anesthesiology Author Type: Anesthesiologist Type: Anesthesia Postprocedure Evaluation Filed: 05/09/2021 6:56 PM Note Text: POST ANESTHESIA EVALUATION NOTE : 1975 Procedure Summary Date: 05/09/21 Room / Location: [facility] / ASC Anesthesia Start: 1534 Anesthesia Stop: 1617 Procedure: ARTHROSCOPY KNEE W/ MENISCECTOMY MEDIAL (Right Knee) Diagnosis: Complex tear of medial meniscus of right knee as current injury, initial encounter Surgeons: Jose Steele MD Responsible Provider: Braden Chau III, MD Anesthesia Type: general ASA Status: 1 Anesthesia Type: general Last vitals Vitals Value Taken Time BP 124/64 05/09/21 1645 Temp 36.3 ?C (97.3 ?F) 05/09/21 1645 HR SpO2 62 05/09/21 1648 Resp 18 05/09/21 1648 SpO2 100 % 05/09/21 1648 Vitals shown include unvalidated device data. Post Anesthesia Patient Status Patient Evaluation: PACU. PACU/ICU Patient Condition: stable. Anticipated Disposition: phase 2 then home. Neurological Status: aware and responsive. Pulmonary Status: breathing comfortably on room air Airway Control: returned to baseline unsupported. Cardiovascular Status: stable. Pain Management: satisfactory to patient - multimodal analgesia pain management approach Postoperative Hydration: acceptable. Intraoperative Events: no significant anesthesia events Post Operative Nausea/Vomiting Status: no significant post operative nausea or vomiting Anesthetic Observations: Recommendation: continue current plan of care. No complications documented. SIGNATURE: Braden Chau MD PATIENT NAME: Dontae Velasquez DATE: May 09, 2021 TIME: 6:56 PM CSN: [id number] [facility] ANES PRE-OPon 05-09-2021 ANES PRE-OP HNO ID: [id number] Author: Braden Chau III, MD Service: Anesthesiology Author Type: Anesthesiologist Type: Anesthesia Preprocedure Evaluation Filed: 05/09/2021 2:42 PM Note Text: ANESTHESIOLOGY DAY OF SURGERY NOTE : 1975 Procedure(s) (LRB): ARTHROSCOPY KNEE W/ MENISCECTOMY MEDIAL (Right) Surgeon(s): MD Brown Santiago MD Estimated body mass index is 23.32 kg/m? as calculated from the following: Height as of 05/02/21: 188 cm (6' 2). Weight as of 05/02/21: 82.4 kg (181 lb 9.6 oz). Most recent hematocrit and potassium results: No results found for this basename: HCT,HEMATOCRIT,K,POTASSIUM Relevant Problems No relevant active problems I - PHYSICAL EVALUATION AIRWAY Patient intubated: No. Tracheostomy tube not present Mallampati: I. TM distance: >3 FB. Neck ROM: full ROM without neurological symptoms. Mouth opening: adequate. Short neck: no. Thick neck: no DENTAL Dental findings: teeth intact. Additional exam findings: yes. CARDIOVASCULAR Normal cardiovascular observations. PULMONARY Normal pulmonary observations. II - ANESTHESIA PLAN ASA Score: 1 Anesthetic Plan: general Airway type: LMA The patient is not a current smoker. NPO Status: adequate Administration of chronic beta jeremiah medication not planned. Monitoring plan: standard ASA. Postoperative analgesic plan: multimodal analgesia. Anesthetic Risks, Benefits, Alternatives, Personnel Discussed. Consent obtained from: patient.Patient / Surrogate agrees to blood products: blood products not planned DNR status not reviewed with patient and/or family prior to surgery. Significant changes in the patient condition since the History and Physical, not otherwise documented in primary service progress note: no. Potential Anesthesia issues that may suggest increased risk of complications or contraindication to planned procedure: none. Vitals Value Taken Time BP 116/77 05/09/21 1432 Pulse Resp 18 05/09/21 1432 Temp SpO2 97 % 05/09/21 1432 Facility-Administered Medications as of 05/09/2021 Medication Dose Route Frequency - lactated ringers iv infusion 5-30 mL/hr INTRAVENOUS CONTINUOUS - ceFAZolin iv piggyback 2 g in D5W (iso-osmotic) 100 mL (ANCEF) 2 g INTRAVENOUS Pre-Op Once - acetaminophen 1,000 mg tab(s) (TYLENOL) 1,000 mg ORAL Pre-Op Once No current outpatient medications on file as of 05/09/2021. I have interviewed and examined the patient. I have reviewed the medical record and/or the pre-anesthesia evaluation, pertinent labs, and test results. This contains updated information obtained within 48 hours of Surgery/Procedure. SIGNATURE: Braden Chau MD PATIENT NAME: Dontae Velasquez DATE: May 09, 2021 TIME: 2:42 PM CSN: [id number] [facility] BRIEF OP NOTon 05-09-2021 BRIEF OP NOT HNO ID: [id number] Author: Brown Jackson MD Service: Orthopaedic Surgery Author Type: Fellow Type: Brief Op Note Filed: 05/09/2021 4:13 PM Note Text: BRIEF OP NOTE LOG ID: [id number] Surgery/Procedure Date: 05/09/2021 Incision/Procedure Start Time: 3:53 PM Incision Close/Procedure End Time: 4:06 PM Surgeon(s)/Proceduralist(s) and Mechanic Chief(s): Surgeon(s) and Role: * Jose Steele MD - Primary * Brown Jackson MD - Fellow Procedure(s): Right knee PMM Anesthesia: General Findings: Right knee medial meniscus tear Estimated Blood Loss: 2 mls Specimens: None Complications: None Pre-Op/Pre-Procedure Diagnosis: Right knee medial meniscus tear Post-Op/Post-Procedure Diagnosis: * No post-op diagnosis entered * SIGNATURE: Brown Jackson MD PATIENT NAME: Dontae Velasquez DATE: May 09, 2021 TIME: 4:12 PM PAGER/CONTACT #: [facility] HISTORY PHYSICALon HISTORY PHYSICAL HNO ID: [id number] Author: Jose Steele MD Service: Orthopaedic Surgery Author Type: Physician Type: HANDP Filed: 05/09/2021 4:15 PM Note Text: UPDATED HISTORY AND PHYSICAL EXAMINATION SERVICE DATE: 05/09/2021 SERVICE TIME: 1540 PHYSICAL EXAM MUST BE COMPLETED ON ADMISSION The History and Physical (completed in the past 30 days) has been reviewed and the patient has been examined. The contents accurately reflect the patient's condition with the following additions or revisions since the HANDP was completed. Examination indicates no changes. This HANDP can be found in the Electronic Medical Record dated 04/30/21. The patient was offered a surgery/procedure at a [facility] facility. The surgeon/proceduralist and patient have discussed in detail the risk of exposure to and/or potential harm posed by the COVID-19 virus with having a surgery/procedure at this time versus the risk of delaying the surgery/procedure. It is not possible to know either the risk of delaying the surgery or procedure or chance of getting an infection with perfect accuracy, but a joint decision was made between the patient and the surgeon/proceduralist to proceed at this time with the scheduled surgery/procedure as indicated on the consent form. SIGNATURE: Jose Steele MD PATIENT NAME: Dontae Velasquez DATE: May 09, 2021 TIME: 4:13 PM [facility] NURSING PROGon 05-09-2021 NURSING PROG HNO ID: [id number] Author: Lois Peace RN Service: Nursing Author Type: Registered Nurse Type: Nursing Progress Note Filed: 05/09/2021 4:48 PM Note Text: POST OP LEARNING RESPONSE INSTRUCTION PROVIDED TO: Patient and Spouse METHOD OF INSTRUCTION: Written instruction - handouts Verbal instruction Demonstration-Hands on Learning PATIENT / FAMILY RESPONSE: Information received as demonstrated by interest and questions FOLLOW-UP PLAN: Follow-up with Primary Care SUPPLEMENTAL MATERIAL: None REFERRAL (RECOMMENDATION): None Electronically Signed By: Lois Peace RN In Department: [facility] AMBULATORY SURGERY - ASCE Normal [facility] OPERATIVE NOon 05-09-2021 OPERATIVE NO HNO ID: [id number] Author: Jose Steele MD Service: Orthopaedic Surgery Author Type: Physician Type: Operative Report Filed: 05/21/2021 12:55 PM Note Text: [facility] - Operative Report DONTAE VELASQUEZ : 1975 AGE: 45. SEX: M PATIENT TYPE: A HOSP SVC: [facility] LOCATION: [facility] ATTENDING PHYSICIAN: Jose Steele M.D. CSN NUMBER: [id number] DATE OF SURGERY/PROCEDURE: 05/09/2021 INCISION/PROCEDURE START TIME: 1553. INCISION CLOSE/PROCEDURE END TIME: 1610. Please note, the fellow performed skin closure under my direct guidance. PREOPERATIVE DIAGNOSIS: Right knee medial meniscus tear with chronic posterior cruciate ligament sprain. POSTOPERATIVE DIAGNOSIS: Right knee medial meniscus tear with chronic posterior cruciate ligament sprain. SURGEON: Jose Steele MD INTERPRETER FOR THE DEAF: Brown Jackson M.D. SURGERY/PROCEDURE: 1.Right knee arthroscopy. 2.Partial medial meniscectomy. ANESTHESIA: General. LOCATION: [facility]. OPERATIVE INDICATIONS: Pleasant male with recurrent medial-sided mechanical knee symptoms not amenable to conservative measures. Imaging exam findings discussed with a medial meniscus tear. Surgical and nonsurgical treatment options were discussed as well as risks, benefits, alternatives, he voiced understanding and wished to proceed. DESCRIPTION OF PROCEDURE: Patient was brought to [facility] [address] on 05/09/21 after marking the appropriate surgical extremity in preoperative holding area. Brought in the operative suite, placed on the operative table, induced under general anesthesia. Placed distally on the table. Exam under anesthesia revealed symmetric extension and flexion. He had approximately 6 x 8 mm with increased valgus at 30 degrees with no opening in full extension. Stable on the left. He had a negative anterior drawer with a positive posterior drawer grade 2 on the right. Tourniquet was placed high on the right thigh and not used during the procedure. The lateral aspect of the right knee was prepped with Betadine. The preemptive analgesic cocktail of 40 mL of 0.5% ropivacaine with 2 mg of Duramorph for postoperative analgesia. The leg was then secured in the arthroscopic leg meier. Left lower extremity was placed in an Juan J stirrup. Care was taken to pad all bony prominences. The right lower extremity was then prepped and draped in usual sterile fashion. After appropriate surgical time-out including all members of the surgical team, confirming the site and extremity, ensuring studio receptionist of 2 g IV Ancef. The portal sites, the anterolateral and anteromedial were injected each with 2 mL of 1% lidocaine with 1:100,000 epinephrine. Standard lateral portal was created. Exam of patellofemoral articulation revealed diffuse grade 3 change on the trochlea. The patella had some mild thinning, but overall was intact. The gutters were examined. The lateral gutter was free of debris. The medial gutter had a piece of meniscus stuck in it. The medial compartment was entered, and under direct visualization with an 18-gauge spinal needle, standard anteromedial portal was created. Exam of the medial meniscus revealed a complex tear from the root to the midbody with a flap that was stuck into the gutter. This was reduced into the joint. This was then debrided with the oscillating suction shaver device and arthroscopic punch biters back to a stable edge. Approximately 40% of the meniscus remained at its thinnest margin. The medial femoral condyle and medial tibial plateau were intact. The ACL was probed and felt to be intact. Lateral compartment was entered. There was a fissure within the lateral tibial plateau. The lateral meniscus was not torn or hypermobile. The lateral femoral condyle was intact. At this point, all loose debris was then removed from the joint. Copious irrigation was then performed. Care taken to remove all excess fluid. Portal sites were then closed with interrupted 3-0 Prolene followed by Steri-Strips and sterile dressing. Patient was then awakened from general anesthesia and taken to PACU in stable condition. COMPLICATIONS: None. SPECIMENS: None. FLUIDS: See anesthesia record. Jose Steele MD JR:[id number] /[id number] [facility] ANES PRE-OPon 05-02-2021 ANES PRE-OP HNO ID: [id number] Author: Blane Becerra MD Service: Anesthesiology Author Type: Anesthesiologist Type: Anesthesia Preprocedure Evaluation Filed: 05/02/2021 2:05 PM Note Text: ANESTHESIOLOGY DAY OF SURGERY NOTE : 1975 Procedure(s) (LRB): ARTHROSCOPY KNEE W/ MENISCECTOMY MEDIAL (Right) Surgeon(s): Jose Steele MD Estimated body mass index is 23.75 kg/m? as calculated from the following: Height as of 04/30/21: 188 cm (6' 2). Weight as of 04/30/21: 83.9 kg (185 lb). Most recent hematocrit and potassium results: No results found for this basename: HCT,HEMATOCRIT,K,POTASSIUM Relevant Problems No relevant active problems I - PHYSICAL EVALUATION AIRWAY Patient intubated: No. Mallampati: II. TM distance: >3 FB. Neck ROM: full ROM without neurological symptoms. Mouth opening: adequate. Short neck: no. Thick neck: no DENTAL Dental findings: teeth intact. Additional exam findings: no II - ANESTHESIA PLAN ASA Score: 2 Anesthetic Plan: general Airway type: LMA NPO Status: adequate Monitoring plan: Standard ASA. Postoperative analgesic plan: parenteral or oral opioids and multimodal analgesia. Anesthetic Risks, Benefits, Alternatives, Personnel Discussed. Consent obtained from: patient.Patient / Surrogate agrees to blood products: yes DNR status not reviewed with patient and/or family prior to surgery. Significant changes in the patient condition since the History and Physical, not otherwise documented in primary service progress note: no. Potential Anesthesia issues that may suggest increased risk of complications or contraindication to planned procedure: none. No vitals data found for the desired time range. Facility-Administered Medications as of 05/02/2021 Medication Dose Route Frequency - lactated ringers iv infusion 5-30 mL/hr INTRAVENOUS CONTINUOUS - ceFAZolin iv piggyback 2 g in D5W (iso-osmotic) 100 mL (ANCEF) 2 g INTRAVENOUS Pre-Op Once No current outpatient medications on file as of 05/02/2021. I have interviewed and examined the patient. I have reviewed the medical record and/or the pre-anesthesia evaluation, pertinent labs, and test results. This contains updated information obtained within 48 hours of Surgery/Procedure. SIGNATURE: Blane Becerra MD PATIENT NAME: Dontae Velasquez DATE: May 02, 2021 TIME: 2:05 PM CSN: [id number] [facility] NURSING PROGon 05-02-2021 NURSING PROG HNO ID: [id number] Author: Franca Rivera RN Service: ? Author Type: Registered Nurse Type: Nursing Progress Note Filed: 05/02/2021 2:30 PM Note Text: [address] Steele assessing poison wayne on right leg, consulting with Dr. Steele. 1625 Alma MOLREY at bedside explaining to pt that we are unable to perform surgery today d/t poison wayne on right knee within surgical field. Pt verbalizes understanding. Pt in contact via cell phone with his Arminda who will be taking him home. [facility] NURSING PROG HNO ID: [id number] Author: Franca Rivera RN Service: ? Author Type: Registered Nurse Type: Nursing Progress Note Filed: 05/02/2021 2:04 PM Note Text: PRE OP LEARNING ASSESSMENT PROCEDURE/SURGERY: SURGERY: right knee READINESS TO LEARN COGNITIVE ABILITY: Alert and oriented MOTIVATION TO LEARN: Interested FAMILY SUPPORT: High - Very involved in pt care PATIENT LEARNS BEST BY: Verbal Instruction FACTORS AFFECTING LEARNING: None PHYSICAL LIMITATIONS AFFECTING LEARNING: None Electronically Signed By: Franca Rivera RN In Department: [facility] AMBULATORY SURGERY - [facility] HISTORY PHYSICALon HISTORY PHYSICAL HNO ID: [id number] Author: Jessica Ceja PA-C Service: ? Author Type: Physician Mechanic Chief Type: HANDP Filed: 05/01/2021 7:48 AM Note Text: PREANESTHESIA CONSULT CLINIC TELEHEALTH VISIT Patient has been identified by name and date of : Yes This is a virtual visit using [employer] video visit. It require patient-provider interaction for the medical decision making as documented below. Reason for contact: PACC visit Accompanied by: Self Scheduled Surgery: RIGHT knee arthroscopy partial medial meniscectomy Subjective CHIEF COMPLAINT: Patient presents with: Pre-Op Exam: right mm tear HPI: Patient is a 45 year old male with a PMHx palpitations presenting to pre-anesthesia consultation. Patient has right knee medial meniscus tear for probably over a year. He relates to injuries. He has immediate swelling after both injuries. Since the year ago he has had intermittent pain and catching. He has been treated with a knee brace. Evaluated with x-ray and MRI. Denies pain today. Recommended for above surgery. ACTIVE PROBLEM LIST Complex Tear of Medial Meniscus of Right Knee As Current Injury Palpitations No past medical history on file. PAST SURGICAL HISTORY Procedure Laterality Date - PAST SURGICAL HISTORY OF hernia repair FAMILY HISTORY Problem Relation Age of Onset - Heart Failure Maternal Grandmother Social History Tobacco Use - Smoking status: Never Smoker - Smokeless tobacco: Never Used Vaping Use - Vaping Use: Never used Substance Use Topics - Alcohol use: Yes Comment: 1-2 occasionally - Drug use: Never ALLERGIES No Known Allergies MEDICATIONS: No current outpatient medications on file. No current facility-administered medications for this visit. REVIEW OF SYSTEMS: Pain Assessment: General: No weight loss, malaise or fevers. Neuro: No history of TIA's, stroke, CLIENT INSIGHTS CONSULTANT tumor, impaired sensorium, hemiplegia, paraplegia or quadraplegia. No neurological symptoms or problems. Respiratory: No history of current cough or dyspnea, or pneumonia in the past 6 weeks. No history of respiratory/pulmonary symptoms or problems. Cardiovascular: Negative for Recent VA, CAD, CHF Negative for chest pain, orthopnea, PND, dizziness, lightheadedness or syncope. Negative for heart murmur. Negative for h/o DVT/PE. Negative for LE edema. Hx palpitations with a thorough work-up beginning of 2019. Patient denies palpitations, shortness of breath or change in functional activity GI: No history of GI symptoms or problems. No history of esophageal varices, recent ascites, or ETOH greater than 2 drinks per day. : No history of dysuria, frequency or incontinence,, stones or chronic kidney disease Endocrine: No history of diabetes. Has not taken steroids within the past 30 days. No history of endocrinological symptoms or problems. Completed a Medrol Dosepak for 1 week today for poison wayne Hematology: No history of bleeding or clotting disorder. Pt is not taking anti-coagulation or platelet medications. No history of hematological symptoms or problems. Oncology: No history of CA metastasis, chemo within 30 days, or radiotherapy within 90 days. Has not lost 10% of body wt in 6 months. No history of oncological symptoms or problems. Psych: No history of psychiatric symptoms or problems. Musculoskeletal: See HPI Skin: Poison wayne rash on the posterior aspect of his right leg calf and hamstring, with associated erythema. also has it on left left and upper extremity, just completed medrol dose isaac today. Objective PHYSICAL EXAM: Pulse 80 Resp 16 Ht 6' 2 (1.88m) Wt 185 lb (83.9kg) BMI 23.74 kg/(m2). VIDEO EXAM: (if completed, performed via video enabled technology) GENERAL: alert and appropriate, in no distress, well-hydrated, well nourished and happy, smiling, interactive SKIN: rash on right leg posteriorly calf and hamstring with erythema HEAD: normocephalic, no abnormality or lesion noted OROPHARYNX: moist mucus membranes NECK: full ROM, no cervical LNs noted RESPIRATORY: breathing non-labored CHEST: equal chest rise with normal respiratory effort HEART: radial pulse palpated 80 bpm, felt to be RRR EXTREMITIES: right knee without swelling, no rash anteriorly Diagnostic tests reviewed for today's visit: MRI CARDIAC 01/24/2020 IMPRESSION: 1. ?Normal biventricular function with mildly dilated left ventricle (EDVi = 116 cc/m2) and mild to moderately dilated right ventricle (EDVi = 121 cc/m2 ), and mild biatrial enlargement; these findings along with clinical history favor athletes heart. 2. ?Mild mitral regurgitation, Rf: 18%. Trivial to mild tricuspid regurgitation, Rf: 8% 3. 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 ?The remaining thoracic aorta is normal. No acute pathology. 4. No evidence of (more content not included)... Normal [facility] THROAT CULTURE ([id number])Ordere d By: Guest Service Aide on 10-25-2018 Bacteria identified Respiratory culture Nom (Unsp spec) RRF Normal [facility] Work Phone: Comment on above: Routine respiratory kate PATIENT NOT FASTINGP ERFORMED BY: ABUNDIO [facility] [id number] [facility] [id number] Information: SRC: Bacteria identified Respiratory culture Nom (Unsp spec) Final report Normal [facility] Work Phone: Comment on above: PATIENT NOT FASTINGP ERFORMED BY: ABUNDIO [facility] [id number] [place] [id number] Information: SRC:TH Echocardiogram, Adult (AOH)o n 03-02-2018 Echocardiogram, Adult (AOH) Normal [facility] ([place]) .GFRon 02-17-2018 eGFR (non-black) mL/min/{1.73_m2} Normal [facility] ([place]) Comment on above: Result Comment: GFR Population mean for , Non- Americans Ages 20-29 = 116 mL/min/1.73 sq.m. Ages 30-39 = 107 mL/min/1.73 sq.m. Ages 40-49 = 99 mL/min/1.73 sq.m. Ages 50-59 = 93 mL/min/1.73 sq.m. Ages 60-69 = 85 mL/min/1.73 sq.m. Ages 70+ = 75 mL/min/1.73 sq.m.Chronic Kidney Disease: Less than 60 mL/min/1.73 square metersEnd Stage Renal Disease: Less than 15 mL/min/1.73 square meters Performed By: #### C BC, ADIFF, ANEU, TSH, CMP, GFR ####[address] [address] CMPon 02-17-2018 Alanine aminotransferase (ALT) 49 U/L Normal 12-55 [facility] ([place]) Comment on above: Performed By: #### C BC, ADIFF, ANEU, TSH, CMP, GFR ####[address] [address] Albumin/Globulin Ratio 1.5 {ratio} Normal 0.9-1.6 [facility] ([place]) Comment on above: Performed By: #### C BC, ADIFF, ANEU, TSH, CMP, GFR ####[address] [address] Alk Phos 59 U/L Normal 38-126 [facility] ([place]) Comment on above: Performed By: #### C BC, ADIFF, ANEU, TSH, CMP, GFR ####[place] [address] Bili Total 0.8 mg/dL Normal 0.2-1.2 [facility] ([place]) Comment on above: Performed By: #### C BC, ADIFF, ANEU, TSH, CMP, GFR ####[place] [address] BUN/Creatinine Ratio 19.6 ratio Normal 10.0-22.0 [facility] ([place]) Comment on above: Performed By: #### C BC, ADIFF, ANEU, TSH, CMP, GFR ####[place] [address] Creatinine 1.07 mg/dL Normal 0.60-1.40 [facility] ([place]) Comment on above: Performed By: #### C BC, ADIFF, ANEU, TSH, CMP, GFR ####[place] [address] Globulin 2.9 G/dL Normal 1.5-3.8 [facility] ([place]) Comment on above: Performed By: #### C BC, ADIFF, ANEU, TSH, CMP, GFR ####[place] [address] Protein 7.2 G/dL Normal 6.0-8.5 [facility] ([place] Comment on above: Performed By: #### C BC, ADIFF, ANEU, TSH, CMP, GFR ####[place] [address] Albumin 4.3 G/dL Normal 3.2-4.8 [facility] ([place] Comment on above: Performed By: #### C BC, ADIFF, ANEU, TSH, CMP, GFR ####[place] [address] Aspartate aminotransferase (AST) 31 U/L Normal 8-34 [facility] ([place]) Comment on above: Performed By: #### C BC, ADIFF, ANEU, TSH, CMP, GFR ####[place] [address] Calcium 9.4 mg/dL Normal 8.4-10.1 [facility] ([place] Comment on above: Performed By: #### C BC, ADIFF, ANEU, TSH, CMP, GFR ####[place] [address] Chloride 101 mmol/L Normal 98-110 [facility] ([place] Comment on above: Performed By: #### C BC, ADIFF, ANEU, TSH, CMP, GFR ####[place] [address] CO2 26 mmol/L Normal 22-32 [facility] ([place] Comment on above: Performed By: #### C BC, ADIFF, ANEU, TSH, CMP, GFR ####[place] [address] Electrolyte Balance 13.0 mEq/L Normal 4.0-15.0 [facility] ([place] Comment on above: Performed By: #### C BC, ADIFF, ANEU, TSH, CMP, GFR ####[place] [address] Glucose mass conc 77 mg/dL Normal 70-110 [facility] ([place] Comment on above: Performed By: #### C BC, ADIFF, ANEU, TSH, CMP, GFR ####[place] [address] Potassium molar conc 3.9 mmol/L Normal 3.5-5.0 [facility] ([place] Comment on above: Performed By: #### C BC, ADIFF, ANEU, TSH, CMP, GFR ####[place] [address] Sodium 140 mmol/L Normal 136-145 [facility] ([place]) Comment on above: Performed By: #### C BC, ADIFF, ANEU, TSH, CMP, GFR ####[place] [address] Urea nitrogen 21.0 mg/dL Normal 8.0-22.0 [facility] ([place]) Comment on above: Performed By: #### C BC, ADIFF, ANEU, TSH, CMP, GFR ####[place] [address] TSHon 02-17-2018 Thyroid stimulating hormone (TSH) 0.800 mcIU/mL Normal 0.360-3.74 0 [facility] ([place]) Comment on above: Result Comment: Tyree barber note ? as of 06/13/17 new pediatric reference intervals were added for this test. Performed By: #### C BC, ADIFF, ANEU, TSH, CMP, GFR ####[address] [address] .Auto Diffon 02-16-2018 Basophils Auto #/vol (Bld) 0.00 10 3/mcL Normal 0.00-0.27 [facility] ([place]) Comment on above: Performed By: #### C BC, ADIFF, ANEU, TSH, CMP, GFR ####[address] [address] Basophils/100 WBC Auto (Bld) 0.5 % Normal 0.0-2.5 [facility] ([place] Comment on above: Performed By: #### C BC, ADIFF, ANEU, TSH, CMP, GFR ####[address] [address] Eosinophils 0.30 10 3/mcL Normal 0.00-0.65 [facility] ([place]) Comment on above: Performed By: #### C BC, ADIFF, ANEU, TSH, CMP, GFR ####[address] [address] Eosinophils/100 leukocytes 5.2 % Normal 0.0-6.0 [facility] ([place]) Comment on above: Performed By: #### C BC, ADIFF, ANEU, TSH, CMP, GFR ####[address] [address] Lymphocytes 1.40 10 3/mcL Normal 0.90-4.32 [facility] ([place]) Comment on above: Performed By: #### C BC, ADIFF, ANEU, TSH, CMP, GFR ####[address] [address] Lymphocytes/100 leukocytes 23.3 % Normal 20.0-40.0 [facility] ([place] Comment on above: Performed By: #### C BC, ADIFF, ANEU, TSH, CMP, GFR ####[place] [address] Monocytes 0.60 10 3/mcL Normal 0.09-1.40 [facility] ([place] Comment on above: Performed By: #### C BC, ADIFF, ANEU, TSH, CMP, GFR ####[place] [address] Monocytes/100 leukocytes 9.7 % Normal 2.0-13.0 [facility] ([place] Comment on above: Performed By: #### C BC, ADIFF, ANEU, TSH, CMP, GFR ####[place] [address] Neutrophils/100 WBC Auto (Bld) 61.3 % Normal 50.0-75.0 [facility] ([place] Comment on above: Performed By: #### C BC, ADIFF, ANEU, TSH, CMP, GFR ####[place] [address] .NEUABSon 02-16-2018 Neutrophils 3.70 10 3/mcL Normal 2.25-8.10 [facility] ([place]) Comment on above: Performed By: #### C BC, ADIFF, ANEU, TSH, CMP, GFR ####[place] [address] CBCon 02-16-2018 Erythrocyte distribution width Auto Ratio (RBC) 12.7 % Normal 11.5-15.5 [facility] ([place] Comment on above: Performed By: #### C BC, ADIFF, ANEU, TSH, CMP, GFR ####[place] [address] Erythrocytes (RBC) 4.81 10 6/mcL Normal 4.50-6.00 [facility] ([place]) Comment on above: Performed By: #### C BC, ADIFF, ANEU, TSH, CMP, GFR ####[place] [address] Hematocrit (HCT) 46.3 % Normal 40.0-52.0 [facility] ([place] Comment on above: Performed By: #### C BC, ADIFF, ANEU, TSH, CMP, GFR ####[place] [address] Hemoglobin mass conc (Bld) 16.2 G/dL Normal 13.0-17.5 [facility] ([place] Comment on above: Performed By: #### C BC, ADIFF, ANEU, TSH, CMP, GFR ####[place] [address] MCH 33.5 pg High 27.0-33.0 [facility] ([place] Comment on above: Performed By: #### C BC, ADIFF, ANEU, TSH, CMP, GFR ####[place] [address] MCHC mass conc (RBC) 34.9 G/dL Normal 32.0-36.0 [facility] ([place] Comment on above: Performed By: #### C BC, ADIFF, ANEU, TSH, CMP, GFR ####[place] [address] MCV 96.3 fL Normal 81.0-100.0 [facility] ([place] Comment on above: Performed By: #### C BC, ADIFF, ANEU, TSH, CMP, GFR ####[place] [address] Platelet mean volume (PMV) 8.8 fL Normal 6.4-10.5 [facility] ([place] Comment on above: Performed By: #### C BC, ADIFF, ANEU, TSH, CMP, GFR ####[place] [address] Platelets 211 10 3/mcL Normal 150-450 [facility] ([place]) Comment on above: Performed By: #### C BC, ADIFF, ANEU, TSH, CMP, GFR ####[place] [address] WBC (Leukocytes) 6.10 10 3/mcL Normal 4.50-10.80 [facility] ([place]) Comment on above: Performed By: #### C BC, ADIFF, ANEU, TSH, CMP, GFR ####[place] [address] Vital Signs Date Time Vital Sign Value Performing Clinician Facility 07-31-2023 08:46-0400 Body height 188 cm Mri (I-Stat/1.5t) Work Phone: [facility] 07-31-2023 08:46-0400 Body weight 83.92 kg Mri (I-Stat/1.5t) Work Phone: [facility] 07-31-2023 08:46-0400 Diastolic blood pressure 72 mm[Hg] Mri (I-Stat/1.5t) Work Phone: [facility] 07-31-2023 08:46-0400 Heart rate 64 /min Mri (I-Stat/1.5t) Work Phone: [facility] 07-31-2023 08:46-0400 Systolic blood pressure 123 mm[Hg] Mri (I-Stat/1.5t) Work Phone: [facility] 05-25-2023 13:22-0400 Body height 185.4 cm Sruthi Dillon MD Work Phone: [facility] 05-25-2023 13:22-0400 Body weight 81.24 kg Sruthi Dillon MD Work Phone: [facility] 05-25-2023 13:22-0400 Diastolic blood pressure 77 mm[Hg] Sruthi Dillon MD Work Phone: [facility] 05-25-2023 13:22-0400 Heart rate 68 /min Sruthi Dillon MD Work Phone: [facility] 05-25-2023 13:22-0400 SaO2% (BldA) [Mass fraction] 97 % Sruthi Dillon MD Work Phone: [facility] 05-25-2023 13:22-0400 Systolic blood pressure 115 mm[Hg] Sruthi Dillon MD Work Phone: [facility] 07-24-2021 11:28-0400 Body height 189.23 cm Denise Fernandez [employer] [facility]; [facility] Work Phone: Comment on above: no vs taken as this is phone encounter d ue to covid 07-24-2021 11:28-0400 Body mass index (BMI) [Ratio] 23.43 kg/m2 Denise Gravius [facility]; [facility] Work Phone: Comment on above: no vs taken as this is phone encounter d ue to covid 07-24-2021 11:28-0400 Body surface area Derived from formula 2.11 m2 Denise Gravius [facility]; [facility] Work Phone: Comment on above: no vs taken as this is phone encounter d ue to covid 07-24-2021 11:28-0400 Body weight 83.92 kg Denise Gravius [facility]; [facility] Work Phone: Comment on above: no vs taken as this is phone encounter d ue to covid 07-19-2021 07:10-0400 Body height 189.23 cm Denise Gravius [facility]; [facility] Work Phone: Comment on above: no vs taken as this is phone encounter d ue to covid 07-19-2021 07:10-0400 Body mass index (BMI) [Ratio] 23.43 kg/m2 Denise Gravius [facility]; [facility] Work Phone: Comment on above: no vs taken as this is phone encounter d ue to covid 07-19-2021 07:10-0400 Body surface area Derived from formula 2.11 m2 Denise Gravius [facility]; [facility] Work Phone: Comment on above: no vs taken as this is phone encounter d ue to covid 07-19-2021 07:10-0400 Body weight 83.92 kg Denise Gravius [facility]; [facility] Work Phone: Comment on above: no vs taken as this is phone encounter d ue to covid 07-18-2021 09:51-0400 Body height 189.23 cm Babita Durán DO Work Phone: [facility]; [facility] Work Phone: Comment on above: NO OTHER VITALS TODAY WITH VIRTUAL VISIT BC OF COVID 07-18-2021 09:51-0400 Body mass index (BMI) [Ratio] 23.43 kg/m2 Babita Klarissa DO Work Phone: [facility]; [facility] Work Phone: Comment on above: NO OTHER VITALS TODAY WITH VIRTUAL VISIT BC OF COVID 07-18-2021 09:51-0400 Body surface area Derived from formula 2.11 m2 Babita Huangon DO Work Phone: [facility]; [facility] Work Phone: Comment on above: NO OTHER VITALS TODAY WITH VIRTUAL VISIT BC OF COVID 07-18-2021 09:51-0400 Body weight 83.92 kg Babita Durán DO Work Phone: [facility]; [facility] Work Phone: Comment on above: NO OTHER VITALS TODAY WITH VIRTUAL VISIT BC OF COVID 07-17-2021 08:23-0400 Body height 189.23 cm Amelia Gandara LPN [facility]; [facility] Work Phone: 07-17-2021 08:23-0400 Body mass index (BMI) [Ratio] 23.12 kg/m2 Amelia Gandara LPN [facility]; [facility] Work Phone: 07-17-2021 08:23-0400 Body surface area Derived from formula 2.1 m2 Amelia Gandara LPN [facility]; [facility] Work Phone: 07-17-2021 08:23-0400 Body temperature 97.3 [degF] Amelia Gandara LPN [facility]; [facility] Work Phone: Comment on above: Method: Temporal 07-17-2021 08:23-0400 Body weight 82.78 kg Amelia Gandara LPN [facility]; [facility] Work Phone: 07-17-2021 08:23-0400 Diastolic blood pressure 80 mm[Hg] Amelia Gandara LPN [facility]; [facility] Work Phone: Comment on above: Patient Position: Sitting; Cuff Location : Left Arm; Cuff Size: Standard 07-17-2021 08:23-0400 Heart rate 100 /min Ameliamaximino Velezman [facility]; [facility] Work Phone: Comment on above: Pattern: Regular 07-17-2021 08:23-0400 Respiratory rate 16 /min Amelia Nichol [facility]; [facility] Work Phone: Comment on above: Pattern: Unlabored 07-17-2021 08:23-0400 SaO2% (BldA) [Mass fraction] 97 % Ameliamaximino Velezman [facility]; [facility] Work Phone: Comment on above: Room air 07-17-2021 08:23-0400 Systolic blood pressure 110 mm[Hg] Amelia Nichol [facility]; [facility] Work Phone: Comment on above: Patient Position: Sitting; Cuff Location : Left Arm; Cuff Size: Standard 06-21-2021 09:46-0400 Body height 189.23 cm Denise Fernandez [facility]; [facility] Work Phone: 06-21-2021 09:46-0400 Body mass index (BMI) [Ratio] 23.48 kg/m2 Denise Chahalius [facility]; [facility] Work Phone: 06-21-2021 09:46-0400 Body surface area Derived from formula 2.11 m2 [facility]; [facility] Work Phone: 06-21-2021 09:46-0400 Body weight 84.09 kg Denise Fernandez [facility]; [facility] Work Phone: 05-03-2021 08:58-0400 Body height 189.23 cm [facility]; [facility] Work Phone: 05-03-2021 08:58-0400 Body mass index (BMI) [Ratio] 23.48 kg/m2 [facility]; [facility] Work Phone: 05-03-2021 08:58-0400 Body surface area Derived from formula 2.11 m2 [facility]; [facility] Work Phone: 05-03-2021 08:58-0400 Body temperature 97.1 [degF] Denise Fernandez CMA [facility]; [facility] Work Phone: Comment on above: Method: Infrared 05-03-2021 08:58-0400 Body weight 84.09 kg [facility]; [facility] Work Phone: 05-03-2021 08:58-0400 Diastolic blood pressure 90 mm[Hg] Denise Fernandez [facility]; [facility] Work Phone: Comment on above: Patient Position: Sitting; Cuff Location : Left Arm; Cuff Size: Standard 05-03-2021 08:58-0400 Heart rate 67 /min Denise Fernandez [facility]; [facility] Work Phone: Comment on above: Pattern: Regular 05-03-2021 08:58-0400 Respiratory rate 16 /min Denise Fernandez [employer] [facility]; [facility] Work Phone: Comment on above: Pattern: Unlabored 05-03-2021 08:58-0400 SaO2% (BldA) [Mass fraction] 98 % Denise Fernandez [facility]; [facility] Work Phone: Comment on above: Room air 05-03-2021 08:58-0400 Systolic blood pressure 106 mm[Hg] Denise Fernandez [facility]; [facility] Work Phone: Comment on above: Patient Position: Sitting; Cuff Location : Left Arm; Cuff Size: Standard 04-24-2021 13:54-0400 Body height 189.23 cm [facility]; [facility] Work Phone: 04-24-2021 13:54-0400 Body mass index (BMI) [Ratio] 23.48 kg/m2 [facility]; [facility] Work Phone: 04-24-2021 13:54-0400 Body surface area Derived from formula 2.11 m2 Ze Brand LPN [facility]; [facility] Work Phone: 04-24-2021 13:54-0400 Body temperature 97.1 [degF] Ze Brand LPN [facility]; [facility] Work Phone: Comment on above: Method: Infrared 04-24-2021 13:54-0400 Body weight 84.09 kg Ze Brand LPN [facility]; [facility] Work Phone: 04-24-2021 13:54-0400 Diastolic blood pressure 60 mm[Hg] Ze Brand LPN [facility]; [facility] Work Phone: Comment on above: Patient Position: Sitting; Cuff Location : Left Arm; Cuff Size: Standard 04-24-2021 13:54-0400 Heart rate 65 /min Ze Brand LPN [facility]; [facility] Work Phone: Comment on above: Pattern: Regular 04-24-2021 13:54-0400 Respiratory rate 16 /min Ze Brand LPN [facility]; [facility] Work Phone: Comment on above: Pattern: Unlabored 04-24-2021 13:54-0400 SaO2% (BldA) [Mass fraction] 98 % Ze Brand LPN [facility]; [facility] Work Phone: Comment on above: Room air 04-24-2021 13:54-0400 Systolic blood pressure 98 mm[Hg] Ze Brand LPN [facility]; [facility] Work Phone: Comment on above: Patient Position: Sitting; Cuff Location : Left Arm; Cuff Size: Standard 02-28-2020 08:52-0400 Body height 189.23 cm Amelia Gandara LPN [facility]; [facility] Work Phone: Comment on above: telemed, pt reported weight and temp 02-28-2020 08:52-0400 Body mass index (BMI) [Ratio] 23.48 kg/m2 Amelia Gandara INSTRUCTIONAL SUPPORT ASSISTANT [facility]; [facility] Work Phone: Comment on above: telemed, pt reported weight and temp 02-28-2020 08:52-0400 Body surface area Derived from formula 2.11 m2 Amelia Gandara [facility]; [facility] Work Phone: Comment on above: telemed, pt reported weight and temp 02-28-2020 08:52-0400 Body temperature 98.3 [degF] Amelia Gandara [facility]; [facility] Work Phone: Comment on above: Method: Temporal telemed, pt reported weight and temp 02-28-2020 08:52-0400 Body weight 84.09 kg Ameliamaximino Gandara [facility]; [facility] Work Phone: Comment on above: telemed, pt reported weight and temp 04-05-2019 09:02-0400 BMI (Body Mass Index) 24.12 kg/m2 Ze Brand [facility] Work Phone: 04-05-2019 09:02-0400 Body Temperature 96.8 [degF] Ze Brand [facility] Work Phone: Comment on above: Method: Temporal 04-05-2019 09:02-0400 Body weight 86.35 kg Ze Brand [facility] Work Phone: 04-05-2019 09:02-0400 BP Diastolic 68 mm[Hg] Ze Brand [facility] Work Phone: Comment on above: Patient Position: Sitting; Cuff Location : Left Arm; Cuff Size: Standard 04-05-2019 09:02-0400 BP Systolic 110 mm[Hg] Ze Brand [facility] Work Phone: Comment on above: Patient Position: Sitting; Cuff Location : Left Arm; Cuff Size: Standard 04-05-2019 09:02-0400 BSA (Body Surface Area) 2.14 m2 Ze Brand [facility] Work Phone: 04-05-2019 09:02-0400 Height 189.23 cm Ze Brand [facility] Work Phone: 04-05-2019 09:02-0400 Pulse (Heart Rate) 57 /min Ze Brand LPN [facility] Work Phone: Comment on above: Pattern: Regular 04-05-2019 09:02-0400 Pulse Oximetry 97 % Babita Durán [facility] Work Phone: Comment on above: Room air 04-05-2019 09:02-0400 Respiratory Rate 16 /min Ze Brand LPN [facility] Work Phone: Comment on above: Pattern: Unlabored 04-05-2019 09:02-0400 SaO2% (BldA) [Mass fraction] 97 % Ze Brand LPN [facility]; [facility] Work Phone: Comment on above: Room air 04-05-2019 09:02-0400 Weight 86.35 kg Babita Huangon [facility] Work Phone: 10-25-2018 10:51-0500 BMI (Body Mass Index) 24.12 kg/m2 Ze Brand LPN [facility] Work Phone: 10-25-2018 10:51-0500 Body Temperature 97.4 [degF] Ze Brand LPN [facility] Work Phone: 10-25-2018 10:51-0500 Body weight 86.35 kg Ze Brand LPN [facility] Work Phone: 10-25-2018 10:51-0500 BP Diastolic 82 mm[Hg] Ze Brand LPN [facility] Work Phone: Comment on above: Patient Position: Sitting; Cuff Location : Left Arm; Cuff Size: Standard 10-25-2018 10:51-0500 BP Systolic 116 mm[Hg] Ze Brand LPN [facility] Work Phone: Comment on above: Patient Position: Sitting; Cuff Location : Left Arm; Cuff Size: Standard 10-25-2018 10:51-0500 BSA (Body Surface Area) 2.14 m2 Ze Brand LPN [facility] Work Phone: 10-25-2018 10:51-0500 Height 189.23 cm Ze Brand LPN [facility] Work Phone: 10-25-2018 10:51-0500 Pulse (Heart Rate) 61 /min Ze Brand LPN [facility] Work Phone: Comment on above: Pattern: Regular 10-25-2018 10:51-0500 Pulse Oximetry 98 % Babitaaguila Durán [facility] Work Phone: Comment on above: Room air 10-25-2018 10:51-0500 Respiratory Rate 16 /min Ze Brand LPN [facility] Work Phone: Comment on above: Pattern: Unlabored 10-25-2018 10:51-0500 SaO2% (BldA) [Mass fraction] 98 % Ze Brand LPN [facility]; [facility] Work Phone: Comment on above: Room air 10-25-2018 10:51-0500 Weight 86.35 kg Babita Durán [facility] Work Phone: 04-24-2017 09:34-0400 BMI (Body Mass Index) 24.12 kg/m2 Lizbeth Ventura RN [facility] Work Phone: 04-24-2017 09:34-0400 Body weight 86.35 kg Lizbeth Ventura RN [facility] Work Phone: 04-24-2017 09:34-0400 BP Diastolic 60 mm[Hg] Lizbeth Ventura RN [facility] Work Phone: Comment on above: Patient Position: Sitting; Cuff Location : Left Arm; Cuff Size: Large 04-24-2017 09:34-0400 BP Systolic 108 mm[Hg] Lizbeth Ventura RN [facility] Work Phone: Comment on above: Patient Position: Sitting; Cuff Location : Left Arm; Cuff Size: Large 04-24-2017 09:34-0400 BSA (Body Surface Area) 2.14 m2 Lizbeth Ventura RN [facility] Work Phone: 04-24-2017 09:34-0400 Height 189.23 cm Lizbeth Ventura RN [facility] Work Phone: 04-24-2017 09:34-0400 Pulse (Heart Rate) 57 /min Lizbeth Ventura RN [facility] Work Phone: Comment on above: Pattern: Regular 04-24-2017 09:34-0400 Pulse Oximetry 97 % Babita Durán [facility] Work Phone: Comment on above: Room air 04-24-2017 09:34-0400 Respiratory Rate 18 /min Lizbeth Ventura RN [facility] Work Phone: Comment on above: Pattern: Unlabored 04-24-2017 09:34-0400 SaO2% (BldA) [Mass fraction] 97 % Lizbeth Ventura RN [facility]; [facility] Work Phone: Comment on above: Room air 04-24-2017 09:34-0400 Weight 86.35 kg Babita Durán [facility] Work Phone: 06-23-2016 14:31-0400 BMI (Body Mass Index) 23.31 kg/m2 [facility] Work Phone: 06-23-2016 14:31-0400 Body weight 83.46 kg [facility] Work Phone: 06-23-2016 14:31-0400 BP Diastolic 70 mm[Hg] [facility] Work Phone: Comment on above: Patient Position: Sitting; Cuff Location : Left Arm; Cuff Size: Standard 06-23-2016 14:31-0400 BP Systolic 120 mm[Hg] [facility] Work Phone: Comment on above: Patient Position: Sitting; Cuff Location : Left Arm; Cuff Size: Standard 06-23-2016 14:31-0400 BSA (Body Surface Area) 2.11 m2 [facility] Work Phone: 06-23-2016 14:31-0400 Height 189.23 cm [facility] Work Phone: 06-23-2016 14:31-0400 Pulse (Heart Rate) 61 /min [facility] Work Phone: Comment on above: Pattern: Regular 06-23-2016 14:31-0400 Pulse Oximetry 98 % Babita Durán [facility] Work Phone: Comment on above: Room air 06-23-2016 14:31-0400 Respiratory Rate 18 /min Sunni Herbert [facility] Work Phone: Comment on above: Pattern: Unlabored 06-23-2016 14:31-0400 SaO2% (BldA) [Mass fraction] 98 % Sunni Herbert [facility]; [facility] Work Phone: Comment on above: Room air 06-23-2016 14:31-0400 Weight 83.46 kg Babita Durán [facility] Work Phone: 06-19-2016 11:07-0400 BMI (Body Mass Index) 23.31 kg/m2 Lizbeth Ventura RN [facility] Work Phone: 06-19-2016 11:07-0400 Body weight 83.46 kg Lizbteh Ventura RN [facility] Work Phone: 06-19-2016 11:07-0400 BP Diastolic 78 mm[Hg] Lizbeth Ventura RN [facility] Work Phone: Comment on above: Patient Position: Sitting; Cuff Location : Left Arm; Cuff Size: Standard 06-19-2016 11:07-0400 BP Systolic 110 mm[Hg] Lizbeth Ventura RN [facility] Work Phone: Comment on above: Patient Position: Sitting; Cuff Location : Left Arm; Cuff Size: Standard 06-19-2016 11:07-0400 BSA (Body Surface Area) 2.11 m2 Lizbeth Ventura RN [facility] Work Phone: 06-19-2016 11:07-0400 Height 189.23 cm Lizbeth Ventura RN [facility] Work Phone: 06-19-2016 11:07-0400 Pulse (Heart Rate) 56 /min Lizbeth Ventura RN [facility] Work Phone: Comment on above: Pattern: Regular 06-19-2016 11:07-0400 Pulse Oximetry 97 % Babita Durán [facility] Work Phone: Comment on above: Room air 06-19-2016 11:07-0400 Respiratory Rate 18 /min Lizbeth Ventura RN [facility] Work Phone: Comment on above: Pattern: Unlabored 06-19-2016 11:07-0400 SaO2% (BldA) [Mass fraction] 97 % Lizbeth Ventura RN [facility]; [facility] Work Phone: Comment on above: Room air 06-19-2016 11:07-0400 Weight 83.46 kg Babita Durán [facility] Work Phone: 05-15-2016 09:23-0400 BMI (Body Mass Index) 23.31 kg/m2 Kristi Caputo RN [facility] Work Phone: 05-15-2016 09:23-0400 Body Temperature 98.2 [degF] Kristi Caputo RN [facility] Work Phone: Comment on above: Method: Temporal 05-15-2016 09:23-0400 Body weight 83.46 kg Kristi Caputo RN [facility] Work Phone: 05-15-2016 09:23-0400 BP Diastolic 70 mm[Hg] Kristi Caputo RN [facility] Work Phone: Comment on above: Patient Position: Sitting; Cuff Location : Left Arm; Cuff Size: Standard 05-15-2016 09:23-0400 BP Systolic 122 mm[Hg] Kristi Caputo RN [facility] Work Phone: Comment on above: Patient Position: Sitting; Cuff Location : Left Arm; Cuff Size: Standard 05-15-2016 09:23-0400 BSA (Body Surface Area) 2.11 m2 Kristi Caputo RN [facility] Work Phone: 05-15-2016 09:23-0400 Height 189.23 cm Kristi Caputo RN [facility] Work Phone: 05-15-2016 09:23-0400 Pulse (Heart Rate) 63 /min Kristi Caputo RN [facility] Work Phone: Comment on above: Pattern: Regular 05-15-2016 09:23-0400 Pulse Oximetry 99 % Babita Durán [facility] Work Phone: Comment on above: Room air 05-15-2016 09:23-0400 Respiratory Rate 16 /min Kristi Caputo RN [facility] Work Phone: Comment on above: Pattern: Unlabored 05-15-2016 09:23-0400 SaO2% (BldA) [Mass fraction] 99 % Kristi Caputo RN [facility]; [facility] Work Phone: Comment on above: Room air 05-15-2016 09:23-0400 Weight 83.46 kg Babita Durán [facility] Work Phone: Encounters Encounter Date Encounter Type Care Provider Facility Start: 08-24-2025 ambulatory Babita Durán Facilit y:[facility] Start: 08-16-2025 End: 08-16-2025 ambulatory SRUTHI DILLON Facility:[facility] Start: 08-16-2025 End: 08-16-2025 ambulatory SRUTHI DILLON Facility:[facility] Start: 07-27-2025 End: 07-28-2025 Telephone encounter Sruthi Dillon MD Work Phone: Cardiology Comment on above: Cardiac Clearance Start: 07-27-2025 End: 07-27-2025 Patient encounter procedure Sugar MORLEY -[facility] Work Phone: Start: 07-27-2025 End: 07-27-[address] 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); Paroxysmal atrial fibrillation (HCC); Palpitations Start: 06-04-2025 End: 06-05-2025 ambulatory Sruthi Dillon MD Work Phone: Cardiology Comment on above: HEART EXAM Start: 01-06-2025 End: 01-09-2025 ambulatory Sruthi Dillon MD Work Phone: Cardiology Comment on above: Abdominal Pulse Start: 07-31-2023 End: 07-31-2023 Subsequent hospital visit by physician Mri Main J 2 (I-Stat/1.5t) Work Phone: MRI J Comment on above: Palpitations [R00.2] Start: 07-30-2023 Orders Only Katie medina MD Work Phone: Cardiology Comment on above: Palpitations (Primar y Dx) Start: 07-17-2023 ambulatory Sruthi Dillon MD Work Phone: Cardiology Comment on above: Zio Monitor Start: 05-25-2023 End: 05-25-2023 Patient encounter procedure Sruthi Dillon MD Work Phone: Cardiology Comment on above: Palpitations (Primar y Dx); Aortic root dilatation (HCC) Start: 05-22-2023 Orders Only Sruthi Dillon MD Work Phone: Cardiology Comment on above: Palpitations (Primar y Dx) Start: 07-24-2021 End: 07-24-2021 Office outpatient visit 15 minutes Babita Klarissa DO Work Phone: [facility] Start: 07-19-2021 End: 07-19-2021 Office outpatient visit 15 minutes Babita Klarissa DO Work Phone: [facility] Start: 07-18-2021 End: 07-18-2021 Office outpatient visit 15 minutes Babita Klarissa DO Work Phone: [facility] Start: 07-17-2021 End: 07-17-2021 Office outpatient visit 25 minutes Babita Klraissa DO Work Phone: [facility] Start: 06-21-2021 End: 06-21-2021 Office outpatient visit 10 minutes Babita Klarissa DO Work Phone: [facility] Start: 05-03-2021 End: 05-03-2021 Office outpatient visit 10 minutes Babita Klarissa DO Work Phone: [facility] Start: 05-03-2021 Review Babita Huango n DO Work Phone: [facility] Start: 04-24-2021 End: 04-24-2021 Office outpatient visit 10 minutes Babita Klarissa DO Work Phone: [facility] Start: 02-28-2020 End: 02-28-2020 Office outpatient visit 15 minutes Babita Klarissa DO Work Phone: [facility] Start: 04-05-2019 End: 04-05-2019 Office outpatient visit 15 minutes Babita Durán [facility] Start: 10-25-2018 Patient encounter procedure [facility] Start: 10-25-2018 End: 10-25-2018 Office outpatient visit 25 minutes Babita Durán [facility] Start: 03-04-2018 Ambulatory [facility] Facility: A Start: 03-01-2018 Ambulatory [facility] Facility: A Start: 02-26-2018 End: 02-27-2018 Ambulatory [facility] Facility:[facility] Start: 02-16-2018 End: 02-21-2018 Ambulatory [facility] Facility:[facility] Start: 02-16-2018 Ambulatory [facility] Facility: A Start: 04-24-2017 End: 04-24-2017 Office outpatient visit 10 minutes Babita Durán [facility] Start: 06-23-2016 End: 06-23-2016 Office outpatient visit 15 minutes Babita Durán [facility] Start: 06-19-2016 End: 06-19-2016 Office outpatient visit 10 minutes Babita Durán [facility] Start: 05-15-2016 End: 05-15-2016 Phone Encounter Babita Hall Chemical Operator al Medicine Start: 05-15-2016 End: 05-15-2016 Periodic preventive med est patient 40-64yrs Babita Durán [facility] Patient encounter procedure Ze Brand LPN [facility]; [facility] Work Phone: Patient encounter procedure Monika Alonzo LPN [facility]; [facility] Work Phone: Patient encounter procedure Denise Fernandez CARD CLOTHIER [facility]; [facility] Work Phone: Procedures Date Procedure Procedure Detail Performing Clinician Start: 08-16-2025 Follow-up visit Follow Up SRUTHI DILLON Start: 07-31-2023 Mra chest w/o & w/co ntrast material Sruthi Dillon MD Work Phone: colonoscopy 2012 Ze Héctor h colonoscopy 2011 Ze Héctor h colonoscopy 2011 Ze Primitivo s INSTRUCTIONAL SUPPORT ASSISTANT colonoscopy 2011 Monika Diaz s INSTRUCTIONAL SUPPORT ASSISTANT colonoscopy 2011 Denise Chahal ius CARD CLOTHIER Eye Exam 01/2016 Ze Morales Eye Exam 01/2016 Ze Morales Eye Exam 01/2016 Ze Brand INSTRUCTIONAL SUPPORT ASSISTANT Eye Exam 01/2016 Monika Alonzo INSTRUCTIONAL SUPPORT ASSISTANT Eye Exam 01/2016 Denise Chahali us CARD CLOTHIER Plan of Treatment Date Care Activity Detail Author Start: 08-16-2025 End: 08-16-2025 Patient encounter procedure Radiology Comment on above: DX:paroxysmal atrial fibrillation; palpitations Start: 08-16-2025 End: 08-16-2025 ambulatory 08/16/2025 2:00 PM EDT Procedure Cardiology [address] [place] [address] DX:paroxysmal atrial fibrillation; palpitations Cardiology Comment on above: DX:paroxysmal atrial fibrillation; palpitations Start: 07-31-2025 Influenza vaccination Influenza Vacc ine (#1) [facility] Start: 06-28-2025 End: 06-28-2025 ambulatory 06/28/2025 11:45 AM EDT Procedure Cardiology [address] [place] [address] scheduled by [facility] Comment on above: scheduled by [facility] Start: 06-28-2025 End: 06-28-2025 Patient encounter procedure Radiology Comment on above: scheduled by [facility]- [facility] Start: 07-31-2024 Covid-19 Vaccine ( season) Covid-19 Vaccine ( season) [facility] Start: 07-31-2024 Influenza vaccination Influenza Vacc ine (#1) [facility] Start: 2023 Pneumococcal Vaccine : 50+ (1 of 1 - PCV) Pneumococcal Vaccine: 50+ (1 of 1 - PCV) [facility] Start: 2023 Shingrix Vaccine (1 of 2) Shingrix Vaccine (1 of 2) [facility] Start: 07-31-2023 Influenza vaccination C [facility] Start: 11-30-2022 DEPRESSION ASSESSMENT DEPRESSION ASS ESSMENT [facility] Start: 03-19-2022 COVID-19 VACCINE (4 - Booster for Pfizer series) COVID-19 VACCINE (4 - Booster for Pfizer series) [facility] Start: 03-19-2022 COVID-19 VACCINE (4 - Pfizer series) COVID-19 VACCINE (4 - Pfizer series) [facility] Start: 09-27-2021 COVID-19 VACCINE (3 - Booster for Pfizer series) COVID-19 VACCINE (3 - Booster for Pfizer series) [facility] Start: 07-24-2021 Procedure Education Eprescribe d prescriptions (G8553) [facility]; [facility] Work Phone: Start: 07-24-2021 Provider Instruction s for Treatment Continue Current Prescription(s) [facility]; [facility] Work Phone: Start: 07-19-2021 Procedure Education Eprescribe d prescriptions (G8553) [facility]; [facility] Work Phone: Start: 07-18-2021 Provider Instruction s for Treatment [facility]; [facility] Work Phone: Start: 07-17-2021 Assay of troponin quantitative Troponin T (High Sensitive) (84653) [facility]; [facility] Work Phone: Start: 07-17-2021 Assay of thyroid stimulating hormone tsh TSH (69696) [facility]; [facility] Work Phone: Start: 07-17-2021 Blood count complete auto&auto difrntl wbc CBC, Platelets & Auto Diff (52479) [facility]; [facility] Work Phone: Start: 07-17-2021 Comprehensive metabo lic panel Metabolic Panel, Comprehensive ([id number]) [facility]; [facility] Work Phone: Start: 06-21-2021 Procedure Education Eprescribe d prescriptions (G8553) [facility]; [facility] Work Phone: Start: 05-03-2021 Procedure Education Eprescribe d prescriptions (G8553) [facility]; [facility] Work Phone: Start: 05-03-2021 Provider Instruction s for Treatment Solu Medrol Injection/ Education [facility]; [facility] Work Phone: Start: 04-24-2021 Procedure Education Eprescribe d prescriptions (G8553) [facility]; [facility] Work Phone: Start: 04-24-2021 Provider Instruction s for Treatment COVID SCREENING FORM [facility]; [facility] Work Phone: Start: 04-05-2019 Procedure Education Eprescribe d prescriptions (G8553) [facility] Work Phone: Start: 04-05-2019 Provider Instruction s for Treatment Follow up if no improvement or if symptoms worsen [facility] Work Phone: Start: 2018 COLOGUARD (FIT-DNA) COLOGUARD (FIT-D NA) [facility] Start: [address] [facility] Start: 2018 COLORECTAL CANCER SCREENING COLORECTAL CANCER SCREENING [facility] Start: [address] COLONOGRAPHY [facility] Start: 2018 DIABETES SCREEN DIABETES SCREEN [facility] Start: 2018 Diabetes Screening Diabetes Screenin g [facility] Start: 2018 FECAL OCCULT BLOOD FECAL OCCULT BLOO D [facility] Start: 2018 Screening for malign ant neoplasm of colon [facility] Start: 2018 SIGMOIDOSCOPY SIGMOIDOSCOPY [facility] Start: 10-25-2018 Patient Education Sore Throat *: sore throat [facility] Work Phone: Start: 10-25-2018 Procedure Education Eprescribe d prescriptions (G8553) [facility] Work Phone: Start: 10-25-2018 Provider Instruction s for Treatment Follow up if no improvement or if symptoms worsen [facility] Work Phone: Start: 10-25-2018 Throat culture THROAT CULTURE ([id number] ) [facility] Work Phone: Start: 10-25-2018 Iaadiadoo streptococ cus group a Rapid Strep Test, Office ([id number]) [facility]; [facility] Work Phone: Start: 10-25-2018 S. pyogenes Ag IA Ql (Unsp spec) Rapid Strep Test, Office ([id number]) [facility] Work Phone: Start: 06-23-2016 Procedure Education Eprescribe d prescriptions (G8553) [facility] Work Phone: Start: 06-23-2016 Provider Instruction s for Treatment [facility] Work Phone: Start: 05-15-2016 Procedure Education Eprescribe d prescriptions (G8553) [facility] Work Phone: Start: 2008 Lipid panel Lipid Screening [facility] Start: [address] [facility] Start: 1992 Hepatitis B Vaccine (1 of 3 - 19+ 3-dose series) Hepatitis B Vaccine (1 of 3 - 19+ 3-dose series) [facility] Start: [address] [facility] Start: 1991 Anxiety Screening Anxiety Screening [facility] Start: 1991 Depression Screening Depression Scre ening [facility] Start: 1991 HEPATITIS C SCREENING HEPATITIS C [facility] Start: 1991 Hepatitis C screening Hepatitis C [facility] Start: 1991 HIV SCREENING HIV SCREENING [facility] Start: 1991 HIV screening HIV Screening [facility] Start: 1973 HEPATITIS B (1 of 3 - 3-dose series) HEPATITIS B (1 of 3 - 3-dose series) [facility] End: 02-08-2026 CTA Chest vessels W contrast IV CTA CHEST (GATED) W IVCON Radiology Routine Disorder of artery or arteriole (HCC) 1 Occurrences starting 01/09/2025 until 02/08/2026 [facility] Work Phone: Comment on above: 1 Occurrences starti ng 01/09/2025 until 02/08/2026 End: 07-05-2026 CTA Chest vessels W contrast IV CTA CHEST (GATED) W IVCON Radiology Routine Disorder of artery or arteriole 1 Occurrences starting 06/05/2025 until 07/05/2026 [facility] Work Phone: Comment on above: 1 Occurrences starti ng 06/05/2025 until 07/05/2026 End: 05-22-2024 ECG COMPLETE ECG COMPLETE ECG Routine Palpitations 1 Occurrences starting 05/22/2023 until 05/22/2024 [facility] Work Phone: Comment on above: 1 Occurrences starti ng 05/22/2023 until 05/22/2024 End: 06-05-2026 ECG COMPLETE ECG COMPLETE ECG Routine Disorder of artery or arteriole Paroxysmal atrial fibrillation (HCC) Palpitations 1 Occurrences starting 06/05/2025 until 06/05/2026 [facility] Work Phone: Comment on above: 1 Occurrences starti ng 06/05/2025 until 06/05/2026 End: 06-23-2024 Mra abdomen w/wo contrast material MRA ABDOMEN WO/W IVCON Radiology Routine Aortic root dilatation (HCC) 1 Occurrences starting 05/25/2023 until 06/23/2024 [facility] Work Phone: Comment on above: 1 Occurrences starti ng 05/25/2023 until 06/23/2024 End: 08-28-2024 MRA CHEST CARDIOVASCULAR WO IVCON MRA CHEST CARDIOVASCULAR WO IVCON Radiology Routine Palpitations 1 Occurrences starting 07/30/2023 until 08/28/2024 [facility] Work Phone: Comment on above: 1 Occurrences starti ng 07/30/2023 until 08/28/2024 End: 06-23-2024 MRA CHEST CARDIOVASCULAR WO/W IVCON MRA CHEST CARDIOVASCULAR WO/W IVCON Radiology Routine Aortic root dilatation (HCC) 1 Occurrences starting 05/25/2023 until 06/23/2024 [facility] Work Phone: Comment on above: 1 Occurrences starti ng 05/25/2023 until 06/23/2024 End: 06-23-2024 MRI CARDIAC MORPH FUNC WO/W IVCON MRI CARDIAC MORPH FUNC WO/W IVCON Radiology Routine Aortic root dilatation (HCC) 1 Occurrences starting 05/25/2023 until 06/23/2024 [facility] Work Phone: Comment on above: 1 Occurrences starti ng 05/25/2023 until 06/23/2024 End: 06-23-2024 MRI CARDIAC VELOCITY FLOW MAP MRI CARDIAC VELOCITY FLOW MAP Radiology Routine Aortic root dilatation (HCC) 1 Occurrences starting 05/25/2023 until 06/23/2024 [facility] Work Phone: Comment on above: 1 Occurrences starti ng 05/25/2023 until 06/23/2024 OUTSIDE VENDOR CARDI AC OUTPATIENT EXTENDED RHYTHM RECORDING (WITHOUT TELEMETRY) OUTSIDE VENDOR CARDIAC OUTPATIENT EXTENDED RHYTHM RECORDING (WITHOUT TELEMETRY) Holter Routine Aortic root dilatation (HCC) Ordered: 05/25/2023 [facility] Work Phone: Comment on above: Ordered: 05/25/2023 OUTSIDE VENDOR CARDI AC OUTPATIENT EXTENDED RHYTHM RECORDING (WITHOUT TELEMETRY) OUTSIDE VENDOR CARDIAC OUTPATIENT EXTENDED RHYTHM RECORDING (WITHOUT TELEMETRY) Holter Routine Disorder of artery or arteriole Ordered: 06/05/2025 [facility] Comment on above: Ordered: 06/05/2025 [facility] Work Phone: [facility] Work Phone: [facility] Work Phone: [facility] Work Phone: Sore throat : So re Throat *: sore throat [facility] Work Phone: [facility] Work Phone: [facility] Work Phone: [facility] Work Phone: [facility]; [facility] Work Phone: [facility]; [facility] Work Phone: [facility]; [facility] Work Phone: [facility] Immunizations Immunization Date Immunization Notes Care Provider Debi madrigal 08-02-2021 COVID-19 original vaccine, age 12+ yr, monovalent (PFIZER-BIONTECH - PURPLE TOP) Sruthi Dillon MD Work Phone: [facility] 06-21-2021 COVID-19 original vaccine, age 12+ yr, monovalent (PFIZER-BIONTECH - PURPLE TOP) Sruthi Dillon MD Work Phone: [facility] Payers Date Payer Category Payer Self-pay 2017 Private Health Insurance MMO SU[employer] PPO [id number] 2017 Unknown 2016 Unknown [id number] 1973 Unknown [id number] Unknown [id number] Unknown [id number] Unknown [id number] Social History Date Type Detail Facility Start: 12-30-2019 End: 05-25-2023 Drug Use Never smoker [facility] Work Phone: Comment on above: 2-4 drinks monthly spouse and son Start: 12-30-2019 End: 05-25-2023 Tobacco smoking status NHIS Never smoked tobacco [facility] Start: 12-30-2019 End: 05-25-2023 Tobacco use and exposure Smokeless tobacco non-user [facility] Start: 07-17-2021 End: 11-26-2023 Alcohol intake Current drinker of alcohol (finding) [facility] Start: 12-30-2019 History SDOH Alcohol Frequency 3 [facility] Start: 12-30-2019 History SDOH Alcohol Std Drinks 1 [facility] Start: 04-30-2021 Alcohol Comment 1-2 occasionally [facility] Start: 1975 Sex Assigned At Not on file [facility] Start: 12-30-2019 End: 05-25-2023 Alcohol Use Disorder Identification Test - Consumption [AUDIT-C] [facility] How often to you hav e a drink containing alcohol? 2-[address] [facility] How many standard dr inks containing alcohol do you have on a typical day? [address] [facility] How often do you hav e 6 or more drinks on 1 occasion? Never [facility] Start: 12-28-2019 National Score (1-10 0), lower number is lower risk 99 [facility] Start: 1975 Sex Assigned At Male [facility] Goals Date Patient Goal Desired Activity /State Personal health goal Clinical Notes 05-09-2021 to 08-16-2025 Telephone Encounter - Ewa Lee - 07/27/2025 4:02 PM EDTTelephone Encounter - Ewa Lee - 07/27/2025 4:02 PM Dale Rg RT(R) - 07/31/2023 8:00 AM EDTPatient Instructions Note Date & Type Note Facility 08-16-2025 Note HNO ID: [id number] Author: CITLALY TOURE RT(Ramu) Service: Radiology Author Type: Technologist Type: Progress Notes Filed: 08/16/2025 14:39 Note Text: Radiology Service Progress Note PATIENT NAME: Dontae Velasquez DATE OF SERVICE: August 16, 2025 TIME: 2:38 PM PATIENT IDENTITY VERIFICATION COMPLETED USING TWO (2) IDENTIFIERS: Name and Date of confirmed by patient verbally. FALL SCREENING: Has the patient had 2 falls in the last year or 1 fall with injury or currently using an Ambulatory Assistive Device (Walker, Cane, Wheelchair, Crutches, etc.)? 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 Anesthesia: No PERIPHERAL IV DATA: Site assessment: Clean,Dry and Intact, Site disposition Discontinued SIGNED BY: RT Ingris(R) August 16, 2025 2:38 PM [facility] 08-16-2025 Note HNO ID: [id number] Author: REID CHEN RN Service: Radiology Author Type: Registered Nurse Type: Progress Notes Filed: 08/16/2025 14:22 Note Text: Radiology Service Progress Note DATE OF SERVICE: August 16, 2025 TIME: 2:22 PM PATIENT WEIGHT: 185 LBS PATIENT IDENTITY VERIFICATION COMPLETED USING TWO (2) STANDARD IDENTIFIERS: Name and Date of confirmed by patient verbally and Name and Date of confirmed by identification band. PATIENT GENDER DATA: Assigned male at ALLERGIES: Reviewed and unchanged CONTRAST ALLERGY: No EXAM: CT -CONTRAST INDUCED NEPHROPATHY RISK FACTORS: Not applicable CREATININE: No results found for: CREAT, EGFROTH, EGFRAA P.O.C.T. RESULTS: N/A August 16, 2025 TREATMENT: No Hydration needed. IV SITE: Ambulatory: A peripheral IV was started in the Right antecubital site with a Angio cath: 20 gauge. IV SITE APPEARANCE: Clean,Dry and Intact SIGNATURE: Reid Chen RN PATIENT NAME: Dontae Velasquez DATE: August 16, 2025 TIME: 2:22 PM [facility] 07-27-2025 Telephone encounter Note Images from the original note were not included. Request for cardiac clearance Procedure: Colonoscopy w/ MAC Sedatiom Procedure Date: 08/04/2025 [facility] Visit: 11/17/2023. Patient has upcoming appt 08/16/25. Informed facility clearance cannot be given until the patient is seen by Dr. Dillon on 08/16. Ewa Lee Brim Molder July 27, 2025 4:[address] [facility] 07-27-2025 Miscellaneous Notes Images from the original note were not included. Request for cardiac clearance Procedure: Colonoscopy w/ MAC Sedatiom Procedure Date: 08/04/2025 [facility] Last Visit: 11/17/2023. Patient has upcoming appt 08/16/25. Informed facility clearance cannot be given until the patient is seen by Dr. Dillon on 08/16. Ewa Lee Brim Molder July 27, 2025 4:03 PM documented in this encounter [facility] 07-31-2023 History of Presen t illness Narrative Radiology Service Progress Note PATIENT NAME: Dontae Velasquez DATE OF SERVICE: July 31, 2023 TIME: 9:04 AM PATIENT IDENTITY VERIFICATION COMPLETED USING TWO (2) IDENTIFIERS: Name and Date of confirmed by identification band and Name and Date of obtained from a relative, guardian or prior caregiver.. FALL SCREENING: Has the patient had 2 falls in the last year or 1 fall with injury or currently using an Ambulatory Assistive Device (Walker, Cane, Wheelchair, Crutches, etc.)? No PATIENT GENDER DATA: Male PATIENT RELEVANT IMPLANT DATA REVIEWED: Yes RADIOLOGY DEPARTMENT: MR; Exam(s) Completed: Cardiac: Cardiac PERIPHERAL IV DATA: Not applicable SIGNED BY: RT Pura(R) July 31, 2023 9:04 AM documented in this encounter [facility] 05-25-2023 Instructions Sruthi Dillon MD - 05/25/2023 1:53 PM EDT Today Please go to desk 2 on this floor to have your rhythm monitor applied or to obtain it to apply later. I suspect your symptoms are related to isolated premature ventricular contractions. We will do an MRI of your aorta to assess the size of your aortic root (was previously dilated). I have also placed a consult request for genetics to assess whether here is a genetic cause for dilated aorta. Please call with any questions: [phone] documented in this encounter [facility] 05-25-2023 History of Presen t illness Narrative Images from the original note were not included. [facility] [place] [facility] Department of Cardiovascular Medicine SECTION OF CLINICAL [facility]ARDIOLOG[facility] OUTPATIENT VISIT DATE May 25, 2023 OUTPATIENT VISIT TYPE EST PRIMARY CARE PHYSICIAN : Babita Durán REFERRING PHYSICIAN: Sruthi Dillon [id number] [facility] [id number] CHIEF COMPLAINT: Follow up HISTORY OF PRESENT ILLNESS: Mr. 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 He was last seen on 07/17/2021 with newly discovered AF (vent rate 80 bpm). I advised him to start apixaban and anticipated DIANE/DCCV the following day with continuation of AC for 1 month thereafter ([id number]). On 05/21/2023, he sent a mychart concerned about racing heart sensations with breath loss and harder beats and I so I advised him to return for evaluation. Over the last few months, he endorses episodes of palpitations different from when he had AF. He states more recently, he wakes up with palpitations, unsure if it's an arrhythmia vs stress-related. He states they feel like skipped beats with the next beat really hard almost taking his breath away, about 1-2 times/day. He does not notice them with exercise/working out. He denies any chest discomfort, lightheadedness, dizziness, shortness of breath with these episodes. Stress has been up for the last few months. PAST MEDICAL HISTORY Diagnosis Date Atrial fibrillation (HCC) PAST SURGICAL HISTORY Procedure Laterality Date PAST SURGICAL HISTORY OF hernia repair PAST SURGICAL HISTORY OF Right knee repair SOCIAL HISTORY Social History Tobacco Use Smoking status: Never Smokeless tobacco: Never Vaping Use Vaping Use: Never used Substance Use Topics Alcohol use: Yes Comment: 1-2 occasionally Drug use: Never FAMILY HISTORY Problem Relation Age of Onset Heart Failure Maternal Grandmother ALLERGIES: ALLERGIES No Known Allergies MEDICATIONS: MULTIVITAMIN ORAL Take by mouth once daily. cyanocobalamin, vitamin B-12, (VITAMIN B-12 ORAL) Take by mouth once daily. ZINC ORAL Take by mouth once daily. ibuprofen (MOTRIN) 600 mg tablet Take 1 tablet by mouth every 8 hours as needed for pain (and swelling). REVIEW OF SYSTEMS: GENERAL: Negative for: Weight loss or gain, Fever or Chills, Weakness and Sleep difficulties. HEENT: Negative for: Headache, Impaired Vision, Glasses, Hearing Impairment, Ringing in Ears, Nosebleeds, Poor dental care, Bleeding Gums, Dentures NECK: Negative for: Swelling, Pain, Stiffness RESPIRATORY: Negative for: Cough, Blood in Sputum, Shortness of breath, Wheezing, Apnea GASTROINTESTINAL: Negative for: Trouble swallowing, Heartburn, Change in bowel habits, Blood in stool, Dark black stools MUSCULOSKELETAL: Negative for: Muscle or joint pain, Stiffness , Joint swelling NEUROLOGIC/PSYCHIATRIC: Negative for: Weakness, Paralysis, Numbness, Tingling, Tremor, Nervousness, Depressed mood, Memory loss SKIN: Negative for: Rashes, Itching HEMATOLOGICAL/LYMPHATIC: Negative for: Easy bruising , Easy bleeding ENDOCRINE: Negative for: Heat or cold intolerance, Excessive sweating, Frequent urination, Frequent thirst PHYSICAL EXAMINATION: There were no vitals taken for this visit. General: Well appearing, in no acute distress. Skin: No clubbing, no cyanosis. Eyes: Extra ocular movements intact Oropharynx: Teeth in good repair. Neck: No jugular venous distention, no carotid bruits, carotids have a normal upstroke, no palpable thyromegaly. Lungs: Clear to auscultation bilaterally, no wheezing or rhonchi. Heart: Irregular rhythm, rate ~70-90 BPM, no heaves, no rub and no murmur. Abdomen: Soft, nontender, bowel sounds normal, no palpable organomegaly, no bruits. Extremities: No peripheral edema . Grade 2/4 distal pulses bilaterally. Neuro: Oriented to person, place and time, alert, cooperative, gait coordinated. CARDIOVASCULAR MEDICINE TESTING: I have personally reviewed the Electrocardiogram. 07/17/2021 ECG (OSH): atrial fibrillation, vent rate 80 bpm 01/23/2020 Zio Monitor: Patient had sinus rhythm with a min HR of 39 bpm, max HR of 160 bpm, and avg HR of 63 bpm. Predominant underlying rhythm was Sinus Rhythm. First Degree AV Block was present. Idioventricular Rhythm was present. Isolated SVEs were rare (<1.0%), SVE Couplets were rare (<1.0%), and no SVE Triplets were present. Isolated VEs were rare (<1.0%, 32), VE Couplets were rare (<1.0%, 1), and VE Triplets were rare (<1.0%, 1). Patient triggered events were associated with sinus rhythm and occasionally with isolated PVCs. One ventricular couplet was also noted with a triggered event. 01/25/2020 Cardiac MRI: IMPRESSION: 1. Normal biventricular function with mildly dilated left ventricle (EDVi = 116 cc/m2) and mild to moderately dilated right ventricle (EDVi = 121 cc/m2 ), and mild biatrial enlargement; these findings along with clinical history favor athletes heart. 2. Mild mitral regurgitation, Rf: 18%. Trivial to mild tricuspid regurgitation, Rf: 8% 3. 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 The remaining thoracic aorta is normal. No acute pathology. 4. No evidence of left-sided SVC. 12/30/2019 Exercise Stress Echo: STRESS ECHO Test was terminated due to completed protocol. Peak HR 166 bpm. (95 % MPHR) Peak BP 162 mmHg/72 mmHg. Patient experienced no symptoms during stress. Rest ECG normal sinus rhythm. Stress ECG normal ST segment response, normal sinus rhythm and premature atrial contraction. Stress complications: none. The left ventricular cavity size is decreased with stress. Rest Stress E/e' average 6.11 6.41 CONCLUSIONS: - Exam indication: Chest Pain - The exercise stress echo was negative for ischemia at 95 % of MPHR (11.7 METS). Good functional capacity for age and gender. No regional wall motion abnormality seen at heart rate achieved. - The left ventricle is normal in size. Left ventricular systolic function is normal. EF = 55 5% (2D biplane) Normal left ventricular diastolic function. - The right ventricle is dilated. Right ventricular systolic function is low normal. - The right atrial cavity is dilated. - The visualized aorta is dilated with a maximal dimension of 4.4 cm (SoV) - Dilated RV, RA, and CS raise spectre of elevated pulmonary pressures though not confirmed on this study due to insufficient tricuspid regurgitant jet. - Left upper extremity saline injection performed to assess for possible persistent LSCV, however, CS not visualized during injection. No shunt identified. - The patient has not had a prior CC echocardiographic exam for comparison. IMPRESSION: Mr. 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 Exam unremarkable and ECG today with sinus rhythm with 1st deg AVB (226 ms). Given quality of symptoms, suspect isolated PVCs. Of note, prior Zio monitor in Dec 2019 showed rare <1% PVCs correlating to symptoms. Suspect increase in stress may be provoking his burden. Recommend 2 week Zio monitor for complete assessment. Additionally, prior cardiac MRI from 2019 showed 4-chamber dilatation (c/w athlete's heart) with normal biventricular function and interestingly eccentric aortic root dilatation particularly of noncoronary cusp (4.6x4.8 cm). Has no known family history of aortopathy, no clinical stigmata to suggest connective tissue disease, remainder of thoracic aorta appeared normal, and no aortic regurgitation on echo at that time. Recommend repeat MRA aorta to reassess dimensions and also referred to genetics for aortopathy assessment. PLAN AND RECOMMENDATIONS: - Zio monitor x 2 weeks - MRA aorta to assess aortic root - Genetics referral FOLLOW UP: TBD CONTACT INFORMATION: Sruthi Dillon M.D., F.A.C.C. Co-Director, [facility] Emergency Department Technicianstaff training and development manager [facility] Section of Clinical Cardiology [facility] Department of Cardiovascular Medicine, [facility] [place], [address], [place] [address] Office / documented in this encounter [facility] 05-09-2021 Note HNO ID: [id number] Author: Natasha Ruano APRN.TRACTOR MECHANIC APPRENTICE Service: ? Author Type: Nurse Painter Touch Up Type: Anesthesia Procedure Notes Filed: 05/09/2021 3:55 PM Note Text: ANESTHESIOLOGY PROCEDURE NOTE Airway General Information Procedure Start Time/Medication Administration: 05/09/2021 3:41 PM Patient location during procedure: OR Timeout Performed Pre-procedure: timeout performed Consent Obtained: Yes Patient identity confirmed: arm band Staffing TRACTOR MECHANIC APPRENTICE: Natasha Ruano APRN.TRACTOR MECHANIC APPRENTICE Performed by: TRACTOR MECHANIC APPRENTICE Indications and Patient Condition Preoxygenated: yes Patient position: sniffing Indications for airway management: anesthesia anesthesia circuit Method: asleep Final Airway Details Final airway type: supraglottic airway Number of attempts at approach: 1 Ventilation between attempts: BVM Final Supraglottic Airway: oropharyngeal Size 4 Seal Adequate: yes Airway not difficult SIGNATURE: Natasha Ruano APRN.TRACTOR MECHANIC APPRENTICE PATIENT NAME: Dontae Velasquez DATE: May 09, 2021 TIME: 3:53 PM CSN: [id number] [facility] Evaluation note Diagnosis Palpitations- Primary [facility]* Diagnosis Palpitations- Primary Aortic root dilatation (HCC) Thoracic aortic ectasia [facility]* Diagnosis Palpitations- Primary [facility]* Diagnosis Aortic root dilatation (HCC) Thoracic aortic ectasia Palpitations [facility]* Diagnosis Pre-op examination- Primary Preoperative examination, unspecified Complex tear of medial meniscus of right knee as current injury, subsequent encounter Palpitations Disorder of artery or arteriole (HCC)- Primary Unspecified disorders of arteries and arterioles [facility]* Diagnosis Pre-op examination- Primary Preoperative examination, unspecified Complex tear of medial meniscus of right knee as current injury, subsequent encounter Palpitations Disorder of artery or arteriole- Primary Unspecified disorders of arteries and arterioles [facility]* Diagnosis Pre-op examination- Primary Preoperative examination, unspecified Complex tear of medial meniscus of right knee as current injury, subsequent encounter Palpitations Disorder of artery or arteriole- Primary Unspecified disorders of arteries and arterioles Paroxysmal atrial fibrillation (HCC) Atrial fibrillation Palpitations documented in this encounter [facility] noteNo assessment information [facility] Work Phone: Instructions* Name Dates Details Patient Instructions Indication:Nonsmoker Start:24-Apr-2021 Instruction Type:Provider Instructions for Treatment How to Access Health Informa tion Online using Patient Portal and [employer] Apps Indication:Nonsmoker Start:24-Apr-2021 Instruction Type:Patient Education How to access health informa tion online Indication:BMI 24.0-24.9, adult Start:05-Apr-2019 Instruction Type:Patient Education How to access health informa tion online - Detail Indication:BMI 24.0-24.9, adult Start:05-Apr-2019 Instruction Type:Patient Education Patient Instructions Indication:BMI 24.0-24.9, adult Start:05-Apr-2019 Instruction Type:Provider Instructions for Treatment How to access health informa tion online Indication:BMI 24.0-24.9, adult Start:25-Oct-2018 Instruction Type:Patient Education How to access health informa tion online - Detail Indication:BMI 24.0-24.9, adult Start:25-Oct-2018 Instruction Type:Patient Education Patient Instructions Indication:Sore throat Start:25-Oct-2018 Instruction Type:Provider Instructions for Treatment How to access health informa tion online Indication:Body mass index (BMI) 23.0-23.9, adult Start:24-Apr-2017 Instruction Type:Patient Education How to access health informa tion online - Detail Indication:Body mass index (BMI) 23.0-23.9, adult Start:24-Apr-2017 Instruction Type:Patient Education Patient Instructions Indication:Body mass index (BMI) 23.0-23.9, adult Start:24-Apr-2017 Instruction Type:Provider Instructions for Treatment Patient Instructions Indication:Poison wayne Start:23-Jun-2016 Instruction Type:Provider Instructions for Treatment How to access health informa tion online Indication:Poison wayne Start:23-Jun-2016 Instruction Type:Patient Education How to access health informa tion online - Detail Indication:Poison wayne Start:23-Jun-2016 Instruction Type:Patient Education How to access health informa tion online Indication:Lipoma of skin of abdomen Start:15-May-2016 Instruction Type:Patient Education How to access health informa tion online - Detail Indication:Lipoma of skin of abdomen Start:15-May-2016 Instruction Type:Patient Education Patient Instructions Indication:Lipoma of skin of abdomen Start:15-May-2016 Instruction Type:Provider Instructions for Treatment [facility] Work Phone: Instructions* Name Dates Details How to Access Health Informa tion Online using Patient Portal and [employer] Apps Indication:Nonsmoker Start:03-May-2021 Instruction Type:Patient Education Patient Instructions Indication:Nonsmoker Start:03-May-2021 Instruction Type:Provider Instructions for Treatment Patient Instructions Indication:Nonsmoker Start:24-Apr-2021 Instruction Type:Provider Instructions for Treatment How to Access Health Informa tion Online using Patient Portal and [employer] Apps Indication:Nonsmoker Start:24-Apr-2021 Instruction Type:Patient Education How to access health informa tion online Indication:BMI 24.0-24.9, adult Start:05-Apr-2019 Instruction Type:Patient Education How to access health informa tion online - Detail Indication:BMI 24.0-24.9, adult Start:05-Apr-2019 Instruction Type:Patient Education Patient Instructions Indication:BMI 24.0-24.9, adult Start:05-Apr-2019 Instruction Type:Provider Instructions for Treatment How to access health informa tion online Indication:BMI 24.0-24.9, adult Start:25-Oct-2018 Instruction Type:Patient Education How to access health informa tion online - Detail Indication:BMI 24.0-24.9, adult Start:25-Oct-2018 Instruction Type:Patient Education Patient Instructions Indication:Sore throat Start:25-Oct-2018 Instruction Type:Provider Instructions for Treatment How to access health informa tion online Indication:Body mass index (BMI) 23.0-23.9, adult Start:24-Apr-2017 Instruction Type:Patient Education How to access health informa tion online - Detail Indication:Body mass index (BMI) 23.0-23.9, adult Start:24-Apr-2017 Instruction Type:Patient Education Patient Instructions Indication:Body mass index (BMI) 23.0-23.9, adult Start:24-Apr-2017 Instruction Type:Provider Instructions for Treatment Patient Instructions Indication:Poison wayne Start:23-Jun-2016 Instruction Type:Provider Instructions for Treatment How to access health informa tion online Indication:Poison wayne Start:23-Jun-2016 Instruction Type:Patient Education How to access health informa tion online - Detail Indication:Poison wayne Start:23-Jun-2016 Instruction Type:Patient Education How to access health informa tion online Indication:Lipoma of skin of abdomen Start:15-May-2016 Instruction Type:Patient Education How to access health informa tion online - Detail Indication:Lipoma of skin of abdomen Start:15-May-2016 Instruction Type:Patient Education Patient Instructions Indication:Lipoma of skin of abdomen Start:15-May-2016 Instruction Type:Provider Instructions for Treatment [facility] Work Phone: Instructions* Name Dates Details How to Access Health Informa tion Online using Patient Portal and [employer] Apps Indication:Nonsmoker Start:03-May-2021 Instruction Type:Patient Education Patient Instructions Indication:Nonsmoker Start:03-May-2021 Instruction Type:Provider Instructions for Treatment Patient Instructions Indication:Nonsmoker Start:24-Apr-2021 Instruction Type:Provider Instructions for Treatment How to Access Health Informa tion Online using Patient Portal and [employer] Apps Indication:Nonsmoker Start:24-Apr-2021 Instruction Type:Patient Education How to access health informa tion online Indication:BMI 24.0-24.9, adult Start:05-Apr-2019 Instruction Type:Patient Education How to access health informa tion online - Detail Indication:BMI 24.0-24.9, adult Start:05-Apr-2019 Instruction Type:Patient Education Patient Instructions Indication:BMI 24.0-24.9, adult Start:05-Apr-2019 Instruction Type:Provider Instructions for Treatment How to access health informa tion online Indication:BMI 24.0-24.9, adult Start:25-Oct-2018 Instruction Type:Patient Education How to access health informa tion online - Detail Indication:BMI 24.0-24.9, adult Start:25-Oct-2018 Instruction Type:Patient Education Patient Instructions Indication:Sore throat Start:25-Oct-2018 Instruction Type:Provider Instructions for Treatment How to access health informa tion online Indication:Body mass index (BMI) 23.0-23.9, adult Start:24-Apr-2017 Instruction Type:Patient Education How to access health informa tion online - Detail Indication:Body mass index (BMI) 23.0-23.9, adult Start:24-Apr-2017 Instruction Type:Patient Education Patient Instructions Indication:Body mass index (BMI) 23.0-23.9, adult Start:24-Apr-2017 Instruction Type:Provider Instructions for Treatment Patient Instructions Indication:Poison wayne Start:23-Jun-2016 Instruction Type:Provider Instructions for Treatment How to access health informa tion online Indication:Poison wayne Start:23-Jun-2016 Instruction Type:Patient Education How to access health informa tion online - Detail Indication:Poison wayne Start:23-Jun-2016 Instruction Type:Patient Education How to access health informa tion online Indication:Lipoma of skin of abdomen Start:15-May-2016 Instruction Type:Patient Education How to access health informa tion online - Detail Indication:Lipoma of skin of abdomen Start:15-May-2016 Instruction Type:Patient Education Patient Instructions Indication:Lipoma of skin of abdomen Start:15-May-2016 Instruction Type:Provider Instructions for Treatment [facility] Work Phone: Instructions* Name Dates Details How to Access Health Informa tion Online using Patient Portal and [employer] Apps Indication:Nonsmoker Start:03-May-2021 Instruction Type:Patient Education Patient Instructions Indication:Nonsmoker Start:03-May-2021 Instruction Type:Provider Instructions for Treatment Patient Instructions Indication:Nonsmoker Start:24-Apr-2021 Instruction Type:Provider Instructions for Treatment How to Access Health Informa tion Online using Patient Portal and [employer] Apps Indication:Nonsmoker Start:24-Apr-2021 Instruction Type:Patient Education How to access health informa tion online Indication:BMI 24.0-24.9, adult Start:05-Apr-2019 Instruction Type:Patient Education How to access health informa tion online - Detail Indication:BMI 24.0-24.9, adult Start:05-Apr-2019 Instruction Type:Patient Education Patient Instructions Indication:BMI 24.0-24.9, adult Start:05-Apr-2019 Instruction Type:Provider Instructions for Treatment How to access health informa tion online Indication:BMI 24.0-24.9, adult Start:25-Oct-2018 Instruction Type:Patient Education How to access health informa tion online - Detail Indication:BMI 24.0-24.9, adult Start:25-Oct-2018 Instruction Type:Patient Education Patient Instructions Indication:Sore throat Start:25-Oct-2018 Instruction Type:Provider Instructions for Treatment How to access health informa tion online Indication:Body mass index (BMI) 23.0-23.9, adult Start:24-Apr-2017 Instruction Type:Patient Education How to access health informa tion online - Detail Indication:Body mass index (BMI) 23.0-23.9, adult Start:24-Apr-2017 Instruction Type:Patient Education Patient Instructions Indication:Body mass index (BMI) 23.0-23.9, adult Start:24-Apr-2017 Instruction Type:Provider Instructions for Treatment Patient Instructions Indication:Poison wayne Start:23-Jun-2016 Instruction Type:Provider Instructions for Treatment How to access health informa tion online Indication:Poison wayne Start:23-Jun-2016 Instruction Type:Patient Education How to access health informa tion online - Detail Indication:Poison wayne Start:23-Jun-2016 Instruction Type:Patient Education How to access health informa tion online Indication:Lipoma of skin of abdomen Start:15-May-2016 Instruction Type:Patient Education How to access health informa tion online - Detail Indication:Lipoma of skin of abdomen Start:15-May-2016 Instruction Type:Patient Education Patient Instructions Indication:Lipoma of skin of abdomen Start:15-May-2016 Instruction Type:Provider Instructions for Treatment [facility] Work Phone: Instructions* Name Dates Details Patient Instructions Indication:Nonsmoker Start:24-Jul-2021 Instruction Type:Provider Instructions for Treatment How to Access Health Informa tion Online using Patient Portal and [employer] Apps Indication:Nonsmoker Start:24-Jul-2021 Instruction Type:Patient Education Patient Instructions Indication:Nonsmoker Start:19-Jul-2021 Instruction Type:Provider Instructions for Treatment How to Access Health Informa tion Online using Patient Portal and [employer] Apps Indication:Nonsmoker Start:19-Jul-2021 Instruction Type:Patient Education Patient Instructions Indication:Nonsmoker Start:21-Jun-2021 Instruction Type:Provider Instructions for Treatment How to Access Health Informa tion Online using Patient Portal and [employer] Indication:Nonsmoker Start:21-Jun-2021 Instruction Type:Patient Education How to Access Health Informa tion Online using Patient Portal and [employer] Apps Indication:Nonsmoker Start:03-May-2021 Instruction Type:Patient Education Patient Instructions Indication:Nonsmoker Start:03-May-2021 Instruction Type:Provider Instructions for Treatment Patient Instructions Indication:Nonsmoker Start:24-Apr-2021 Instruction Type:Provider Instructions for Treatment How to Access Health Informa tion Online using Patient Portal and [employer] Apps Indication:Nonsmoker Start:24-Apr-2021 Instruction Type:Patient Education How to access health informa tion online Indication:BMI 24.0-24.9, adult Start:05-Apr-2019 Instruction Type:Patient Education How to access health informa tion online - Detail Indication:BMI 24.0-24.9, adult Start:05-Apr-2019 Instruction Type:Patient Education Patient Instructions Indication:BMI 24.0-24.9, adult Start:05-Apr-2019 Instruction Type:Provider Instructions for Treatment How to access health informa tion online Indication:BMI 24.0-24.9, adult Start:25-Oct-2018 Instruction Type:Patient Education How to access health informa tion online - Detail Indication:BMI 24.0-24.9, adult Start:25-Oct-2018 Instruction Type:Patient Education Patient Instructions Indication:Sore throat Start:25-Oct-2018 Instruction Type:Provider Instructions for Treatment How to access health informa tion online Indication:Body mass index (BMI) 23.0-23.9, adult Start:24-Apr-2017 Instruction Type:Patient Education How to access health informa tion online - Detail Indication:Body mass index (BMI) 23.0-23.9, adult Start:24-Apr-2017 Instruction Type:Patient Education Patient Instructions Indication:Body mass index (BMI) 23.0-23.9, adult Start:24-Apr-2017 Instruction Type:Provider Instructions for Treatment Patient Instructions Indication:Poison wayne Start:23-Jun-2016 Instruction Type:Provider Instructions for Treatment How to access health informa tion online Indication:Poison wayne Start:23-Jun-2016 Instruction Type:Patient Education How to access health informa tion online - Detail Indication:Poison wayne Start:23-Jun-2016 Instruction Type:Patient Education How to access health informa tion online Indication:Lipoma of skin of abdomen Start:15-May-2016 Instruction Type:Patient Education How to access health informa tion online - Detail Indication:Lipoma of skin of abdomen Start:15-May-2016 Instruction Type:Patient Education Patient Instructions Indication:Lipoma of skin of abdomen Start:15-May-2016 Instruction Type:Provider Instructions for Treatment [facility] Work Phone: reason for referral (narrative)* Outpatient Procedure (Routine) - Authorized Specialty Diagnoses / Procedures Referred By Kaelyn t Referred To Contact [facility] Diagnoses Palpitations Procedures ECG COMPLETE ECG ROUTINE ECG W/LEAST 12 LDS W/I&R Sruthi Dillon MD [id number] [place] [address] Referral ID Status Reason Start Date Expiration Date Visits Requested Visits Authorized [id number] Authorized Auto-Generat ed Referral 05/22/2023 05/21/2024 1 1 [facility] for referral (narrative)No [facility] for [facility] Work Phone: Summary Purpose Family History No Family History Records FoundUnknown Family Member Name Dates Details Father Comments:skin cancer Status:Active Maternal Grandmother Comments:heart failure Status:Active Mother Comments:cancer - unknown or igin Status:Active Sister 1 Comments:cervical ca Status:Active Unknown Family Member Name Dates Details Father Comments:skin cancer Status:Active Maternal Grandmother Comments:heart failure Status:Active Mother Comments:cancer - unknown or igin Status:Active Sister 1 Comments:cervical ca Status:Active Unknown Family Member Name Dates Details Father Comments:skin cancer Status:Active Maternal Grandmother Comments:heart failure Status:Active Mother Comments:cancer - unknown or igin Status:Active Sister 1 Comments:cervical ca Status:Active Unknown Family Member Name Dates Details Father Comments:skin cancer Status:Active Maternal Grandmother Comments:heart failure Status:Active Mother Comments:cancer - unknown or igin Status:Active Sister 1 Comments:cervical ca Status:Active Unknown Family Member Name Dates Details Father Comments:skin cancer Status:Active Maternal Grandmother Comments:heart failure Status:Active Mother Comments:cancer - unknown or igin Status:Active Sister 1 Comments:cervical ca Status:Active Unknown Family Member Name Dates Details Father Comments:skin cancer Status:Active Maternal Grandmother Comments:heart failure Status:Active Mother Comments:cancer - unknown or igin Status:Active Sister 1 Comments:cervical ca Status:Active Unknown Family Member Name Dates Details Father Comments:skin cancer Status:Active Maternal Grandmother Comments:heart failure Status:Active Mother Comments:cancer - unknown or igin Status:Active Sister 1 Comments:cervical ca Status:Active Advance Directives No Advanced Directives Records FoundNo Advanced Directives Records FoundNo Advanced Directives Records FoundNo Advanced Directives Records FoundNo Advanced Directives Records FoundNo Advanced Directives Records Found Instructions Name Dates Details BMI 24.0-24.9, adult : How t o access health information online Indication:BMI 24.0-24.9, adult BMI 24.0-24.9, adult : How t o access health information online - Detail Indication:BMI 24.0-24.9, adult Sore throat : Patient Instru ctions Indication:Sore throat Body mass index (BMI) 23.0-2 3.9, adult : How to access health information online Indication:Body mass index (BMI) 23.0-23.9, adult Body mass index (BMI) 23.0-2 3.9, adult : How to access health information online - Detail Indication:Body mass index (BMI) 23.0-23.9, adult Body mass index (BMI) 23.0-2 3.9, adult : Patient Instructions Indication:Body mass index (BMI) 23.0-23.9, adult Poison wayne : Patient Instruc tions Indication:Poison wayne Poison wayne : How to access h ealth information online Indication:Poison wayne Poison wayne : How to access h ealth information online - Detail Indication:Poison wayne Lipoma of skin of abdomen : How to access health information online Indication:Lipoma of skin of abdomen Lipoma of skin of abdomen : How to access health information online - Detail Indication:Lipoma of skin of abdomen Lipoma of skin of abdomen : Patient Instructions Indication:Lipoma of skin of abdomen Name Dates Details How to access health informa tion online Indication:BMI 24.0-24.9, adult Start:05-Apr-2019 Instruction Type:Patient Education How to access health informa tion online - Detail Indication:BMI 24.0-24.9, adult Start:05-Apr-2019 Instruction Type:Patient Education Patient Instructions Indication:BMI 24.0-24.9, adult Start:05-Apr-2019 Instruction Type:Provider Instructions for Treatment How to access health informa tion online Indication:BMI 24.0-24.9, adult Start:25-Oct-2018 Instruction Type:Patient Education How to access health informa tion online - Detail Indication:BMI 24.0-24.9, adult Start:25-Oct-2018 Instruction Type:Patient Education Patient Instructions Indication:Sore throat Start:25-Oct-2018 Instruction Type:Provider Instructions for Treatment How to access health informa tion online Indication:Body mass index (BMI) 23.0-23.9, adult Start:24-Apr-2017 Instruction Type:Patient Education How to access health informa tion online - Detail Indication:Body mass index (BMI) 23.0-23.9, adult Start:24-Apr-2017 Instruction Type:Patient Education Patient Instructions Indication:Body mass index (BMI) 23.0-23.9, adult Start:24-Apr-2017 Instruction Type:Provider Instructions for Treatment Patient Instructions Indication:Poison wayne Start:23-Jun-2016 Instruction Type:Provider Instructions for Treatment How to access health informa tion online Indication:Poison wayne Start:23-Jun-2016 Instruction Type:Patient Education How to access health informa tion online - Detail Indication:Poison wayne Start:23-Jun-2016 Instruction Type:Patient Education How to access health informa tion online Indication:Lipoma of skin of abdomen Start:15-May-2016 Instruction Type:Patient Education How to access health informa tion online - Detail Indication:Lipoma of skin of abdomen Start:15-May-2016 Instruction Type:Patient Education Patient Instructions Indication:Lipoma of skin of abdomen Start:15-May-2016 Instruction Type:Provider Instructions for Treatment Reason for Referral Specialty Diagnoses / Procedures Referred By Contac t Referred To Contact Diagnoses Aortic root dilatation (HCC) Procedures CONSULT TO MEDICAL GENETICS - CARDIOVASCULAR OFFICE/OUTPATIENT [facility] 60-74 MINUTES MEDICAL GENETICS COUNSELING EACH 30 MINUTES Sruthi Dillon MD [address] [place] [address] [facility] [address] [place] [address] Referral ID Status Reason Start Date Expiration Date Visits Requested Visits Authorized [id number] Authorized PCP Requested Referral Auto-Generate d Referral 05/25/2023 05/24/2024 1 1 Specialty Diagnoses / Procedures Referred By Contac t Referred To Contact MR IMAGING Diagnoses Aortic root dilatation (HCC) Procedures MRA ABDOMEN WO/W IVCON MRA ABD WITH OR W/O CONT Sruthi Dillon MD [address] [place] [address] Mr Imaging Referral ID Status Reason Start Date Expiration Date Visits Requested Visits Authorized [id number] Pending Review Auto-Generat ed Referral 05/25/2023 06/23/2024 1 1 Specialty Diagnoses / Procedures Referred By Contac t Referred To Contact MR IMAGING Diagnoses Aortic root dilatation (HCC) Procedures MRI CARDIAC MORPH FUNC WO/W IVCON CARDIAC MRI W/WO CONTRAST & FURTHER SEQ Sruthi Dillon MD [address] [place] [address] Mr Imaging Referral ID Status Reason Start Date Expiration Date Visits Requested Visits Authorized [id number] Pending Review Auto-Generat ed Referral 05/25/2023 06/23/2024 1 1 Specialty Diagnoses / Procedures Referred By Contac t Referred To Contact MR IMAGING Diagnoses Aortic root dilatation (HCC) Procedures MRA CHEST CARDIOVASCULAR WO/W IVCON MRA CHEST [place] [address] [place] [id number] Mr Imaging Referral ID Status Reason Start Date Expiration Date Visits Requested Visits Authorized [id number] Pending Review Auto-Generat ed Referral 05/25/2023 06/23/2024 1 1 Specialty Diagnoses / Procedures Referred By Contac t Referred To Contact MR IMAGING Diagnoses Aortic root dilatation (HCC) Procedures MRI CARDIAC VELOCITY FLOW MAP CARDIAC MRI FOR VELOCITY FLOW MAPPING Sruthi Dillon MD [address] [place] [address] Mr Imaging Referral ID Status Reason Start Date Expiration Date Visits Requested Visits Authorized [id number] Pending Review Auto-Generat ed Referral 05/25/2023 06/23/2024 1 1 Specialty Diagnoses / Procedures Referred By Contac t Referred To Contact MR IMAGING Diagnoses Palpitations Procedures MRA CHEST CARDIOVASCULAR WO IVCON MRA CHEST WITH OR W/O CONT Lluvia Katie Mckeon MD [address] [facility] [id number] [place] [address] [facility] Referral ID Status Reason Start Date Expiration Date Visits Requested Visits Authorized [id number] Pending Review Auto-Generat ed Referral 07/30/2023 08/28/2024 1 1 Referral ID Status Reason Start Date Expiration Date V isits Requested Visits Authorized [id number] Closed Auto-Generate d Referral 07/30/2023 08/28/2024 1 1 Chief Complaint and Reason for Visit Chief Complaint Admit Date PRE COLONOSCOPY July 27, 2025 7: 37am Additional Source Comments (unrecognized sect ion and content) No Status Records FoundNo Status Records FoundNo Status Records FoundNo Status Records FoundNo Status Records FoundNo Status Records Found INFORMATION SOURCE (unrecogn ized section and content) DATE CREATED AUTHOR 05/20/2018 [facility] DATE CREATED AUTHOR AUTHOR'S ORGANIZ ATION 11/08/2018 [facility] DATE CREATED AUTHOR AUTHOR'S ORGANIZ ATION 05/01/2021 [facility] DATE CREATED AUTHOR AUTHOR'S ORGANIZ ATION 05/22/2021 [facility] DATE CREATED AUTHOR AUTHOR'S ORGANIZ ATION 08/18/2025 [facility] DATE CREATED AUTHOR AUTHOR'S ORGANIZ ATION 08/23/2025 [facility] Source Comments (unrecognize d section and content) In the event this informatio n is protected by the Federal Confidentiality of Alcohol and Drug Abuse Patient Records regulations: The Federal rules restrict any use of the information to criminally investigate or prosecute any alcohol or drug abuse patient.[facility] the event this information is protected by the Federal Confidentiality of Alcohol and Drug Abuse Patient Records regulations: The Federal rules restrict any use of the information to criminally investigate or prosecute any alcohol or drug abuse patient.[facility] CampusIn the event this information is protected by the Federal Confidentiality of Alcohol and Drug Abuse Patient Records regulations: The Federal rules restrict any use of the information to criminally investigate or prosecute any alcohol or drug abuse patient.[facility] CampusIn the event this information is protected by the Federal Confidentiality of Alcohol and Drug Abuse Patient Records regulations: The Federal rules restrict any use of the information to criminally investigate or prosecute any alcohol or drug abuse patient.[facility] CampusIn the event this information is protected by the Federal Confidentiality of Alcohol and Drug Abuse Patient Records regulations: The Federal rules restrict any use of the information to criminally investigate or prosecute any alcohol or drug abuse patient.[facility] the event this information is protected by the Federal Confidentiality of Alcohol and Drug Abuse Patient Records regulations: The Federal rules restrict any use of the information to criminally investigate or prosecute any alcohol or drug abuse patient.[facility] CampusIn the event this information is protected by the Federal Confidentiality of Alcohol and Drug Abuse Patient Records regulations: The Federal rules restrict any use of the information to criminally investigate or prosecute any alcohol or drug abuse patient.[facility] CampusIn the event this information is protected by the Federal Confidentiality of Alcohol and Drug Abuse Patient Records regulations: The Federal rules restrict any use of the information to criminally investigate or prosecute any alcohol or drug abuse patient.[facility] ClinicIn the event this information is protected by the Federal Confidentiality of Alcohol and Drug Abuse Patient Records regulations: The Federal rules restrict any use of the information to criminally investigate or prosecute any alcohol or drug abuse patient.[facility] the event this information is protected by the Federal Confidentiality of Alcohol and Drug Abuse Patient Records regulations: The Federal rules restrict any use of the information to criminally investigate or prosecute any alcohol or drug abuse patient.[facility] [place] [facility] Care Teams (unrecognized sec tion and content) Coiled Tubing Supervisor Relationship Specialty Start Date End Date Babita Durán DO [address] [facility] [address] [place] [address] PCP - General Internal Medicine 07/17/21 Sruthi Dillon MD [address] [place], [place] [id number] Primary Staff Physician Cardiology 07/17/21 Coiled Tubing Supervisor Relationship Specialty Start Date End Date Babita Durán DO [address] [facility] [address] [place] [address] PCP - General Internal Medicine 07/17/21 Sruthi Dillon MD [address] [place] [address] Primary Staff Physician Cardiology 07/17/21 Coiled Tubing Supervisor Relationship Specialty Start Date End Date Babita Durán DO [address] [place] [address] PCP - General Internal Medicine 07/17/21 Sruthi Dillon MD [address] [facility] [place], [place] [id number] Primary Staff Physician Cardiology 07/17/21 Coiled Tubing Supervisor Relationship Specialty Start Date End Date Babita Durán DO [address] [place] [address] PCP - General Internal Medicine 07/17/21 Sruthi Dillon MD [address] [facility] [place], [place] [id number] Primary Staff Physician Cardiology 07/17/21 Coiled Tubing Supervisor Relationship Specialty Start Date End Date Babita Durán DO [address] [place] [address] PCP - General Internal Medicine 07/17/21 Sruthi Dillon MD [address] [place], [place] [id number] Primary Staff Physician Cardiology 07/17/21 Coiled Tubing Supervisor Relationship Specialty Start Date End Date Babita Durán DO [address] [place] [address] PCP - General Internal Medicine 07/17/21 Sruthi Dillon MD [address] [facility] [address] Primary Staff Physician Cardiology 07/17/21 Coiled Tubing Supervisor Relationship Specialty Start Date End Date Babita Durán DO [address] [facility] [address] [place] [address] PCP - General Internal Medicine 07/17/21 Sruthi Dillon MD [address] [place] [address] Primary Staff Physician Cardiology 07/17/21 Coiled Tubing Supervisor Relationship Specialty Start Date End Date Babita Durán DO [address] [facility] [address] [place], [place] [address] PCP - General Internal Medicine 07/17/21 Sruthi Dillon MD [address] [place], [place] [phone] Primary Staff Physician Cardiology 07/17/21 Coiled Tubing Supervisor Relationship Specialty Start Date End Date Babita Durán DO [facility] [facility] [address] [place], [place] [address] PCP - General Internal Medicine 07/17/21 Sruthi Dillon MD [address] [place], [place] [id number] Primary Staff Physician Cardiology 07/17/21 Team Status: Active Member Role/Relationship Status Dates Dr. Babita Durán DO Primary Care Provider Active Team Status: Inactive Member Role/Relationship Status Dates Dr. Babita Durán DO Primary Care Provider Active Start: July 27, 2025 End: July 27, 2025 Dr. Babita Durán DO Referring Provider Active Start: July 27, 2025 End: July 27, 2025 MILLI Pearce Attending Provider Active Start: July 27, 2025 End: July 27, 2025 Coiled Tubing Supervisor Relationship Specialty Start Date End Date Babita Durán DO [address] [place] [address] [address] [place] [address] PCP - General Internal Medicine 07/17/21 Sruthi Dillon MD [address] [place] [id number] Primary Staff Physician Cardiology 07/17/21 Reason for Visit (unrecogniz ed section and content) Reason Comments Follow Up Reason Comments Radiology MRI Specialty Diagnoses / Procedures Referred By Contac t Referred To Contact MR IMAGING Diagnoses Aortic root dilatation (HCC) Procedures MRI CARDIAC MORPH FUNC WO/W IVCON CARDIAC MRI W/WO CONTRAST & FURTHER SEQ Sruthi Dillon MD [address] [place] [address] Mr Imaging [place] [address] Referral ID Status Reason Start Date Expiration Date Visits Requested Visits Authorized [id number] Authorized Auto-Generat ed Referral 07/13/2023 08/26/2023 4 4 Reason Comments Cardiac Clearance Goals (unrecognized section and content) Goals may be documented in a n alternate section FOR RECORDS PERTAINING TO PATIENTS WHO ARE OR HAVE BEEN ENROLLED IN A CHEMICAL DEPENDENCY/SUBSTANCEABUSE PROGRAM, SOME INFORMATION MAY BE OMITTED. This clinical summary was aggregated from multiple sources. Caution should be exercised in using it in the provision of clinical care. This summary normalizes information from multiple sources, and as a consequence, information in this document may materially change the coding, format and clinical context of patient data. In addition, data may be omitted in some cases. CLINICAL DECISIONS SHOULD BE BASED ON THE PRIMARY CLINICAL RECORDS. [employer] provides no warranty or guarantee of the accuracy or completeness of information in this document.
--- NOTE | 2025-08-24 09:38 | PCM.PRE.AN2 ---
ASA Classification* ASA Classification ASA Classification: 2 Assessment & Plan Anesthesia* Anesthesia Assessment Anesthesia Assessment: Discussed sedation and/or anesthesia options, risks, benefits, and alternatives with patient/parents/legal guardian/POA. Questions invited. The patient/parents/legal guardian/POA seems to understand and agrees to proceed with anesthesia plan. Reviewed the physical assessment, medical history, allergy history and patient home medications list prior to surgery/procedure/anesthetic and documented any changes. Performed airway and anesthesia risk assessments. Anesthesia Type Anesthesia Type: MAC History Source History Obtained from:: Patient Anesthesia Focused Assessment* Temperature: 97.7 F Pulse Rate: 66 Blood Pressure: 123/78 Respiratory Rate: 16 Pulse Ox: 98 Oxygen Delivery Method: Room Air Airway Assessment Mouth opens: 1 cm Mallampati Score: I Teeth Condition: Intact Neck Range of motion (ROM): Full ROM Labs Anesthesia Preop lab: CBC WBC, (4.4-11.0) 4.9 K/mm3 07/17/21, 09:15 RBC, (4.6-6.2) 5.19 M/mm3 07/17/21, 09:15 Hgb, (13.0-16.5) 17.2 g/dL H 07/17/21, 09:15 Hct, (40-54) 48.8 % 07/17/21, 09:15 Plt Count, (150-450) 215 K/mm3 07/17/21, 09:15 CHEMISTRY Potassium, (3.5-5.1) 4.0 mmol/L 07/17/21, 09:15 Sodium, (136-145) 141 mmol/L 07/17/21, 09:15 BUN, (7-18) 13 mg/dL 07/17/21, 09:15 Creatinine, (0.70-1.30) 1.14 mg/dL 07/17/21, 09:15 Glucose, (74-106) 90 mg/dL 07/17/21, 09:15 TSH, (0.358-3.74) 1.14 uIU/mL 07/17/21, 09:15 COAG Pre-Assessment Diagnosis/Proposed Procedure Planned Operative Procedure(s): COLONOSCOPY Anesthesia History 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 When Was Last Pacemaker Check QUESTION #4 FULL TEXT: You/Your Family Experience fever (hyperthermia) with Anesthesia Any additional information?: No Last Oral Intake Last Oral intake: Last Oral Intake NPO since 05:30 08/24/25 09:25 Meds taken in AM with sips of No 08/24/25 09:25 water? Meds patient instructed to take am of surgery Any additional information?: Yes NPO since: 05:30 Meds taken in AM with sips of water?: No Meds patient instructed to take am of surgery: 16-20 OZ Gatorade with Miralax PONV PONV - campus security director: PONV - campus security director Female No 08/21/25 15:26 HX of Motion Sickness No 08/21/25 15:26 HX of N/V After Surgery No 08/21/25 15:26 Non-Smoker Yes 08/21/25 15:26 Duration of Surgery greater No 08/21/25 15:26 than 60 minutes Number of Risk Factors 1 08/21/25 15:26 PONV Score Low Risk 08/21/25 15:26 Any additional information?: No Height & Weight Height & Weight: Anesthesia: Height & Weight Height 6 ft 1 in 08/24/25 09:25 Weight: 82.1 kg 08/24/25 09:25 Body Mass Index (BMI) 23.8 08/24/25 09:25 Respiratory Assessment Respiratory Assessment - campus security director: Respiratory Tract Infection Hx - campus security director Hx Respiratory Tract Infection No 08/21/25 15:26 Any additional information?: No STOP Sleep Apnea STOP Sleep Apnea - campus security director: STOP Sleep Apnea - campus security director Hx Hypertension No 08/21/25 15:26 Hx Sleep Apnea No 08/21/25 15:26 CPAP BIPAP Do you snore loudly (louder No 08/21/25 15:26 than talking or can be heard Do you often feel tired/ No 08/21/25 15:26 fatigued/ sleepy during daytime? Has anyone observed you stop No 08/21/25 15:26 breathing during sleep? STOP Results Negative 08/21/25 15:26 QUESTION #5 FULL TEXT : Do you snore loudly (louder than talking or can be heard through closed doors)? 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 Specify any problems Hx of Preganancy in last 3 N/A 08/21/25 15:26 Months Nurse Filling Out Transfusion VCHRISTIN 08/21/25 15:26 & Questions: Date: 08/21/25 08/21/25 15:26 Time: 15:26 08/21/25 15:26 Patient unable to answer at this time (ie. confused, unrespo Any additional information?: No /Reproduction History /Reproductive History - campus security director: /Reproductive Hx- campus security director Hx Now Gestational Age (in weeks): EDC: Hx Hx Para Hx Section SAB Any additional information?: No Active Medications Active Medications: Current Medications Generic Name Dose Route Start Last Admin Trade Name Freq PRN Reason Stop Dose Admin Lactated Ringer's 1,000 mls @ 15 mls/hr 08/24/25 09:15 08/24/25 09:30 IV 15 mls/hr .Q48H ZIYAD Administration PFSH Medical History Wears glasses Wears contact lenses Anxiety Non-smoker History of echocardiogram History of stress test Cardiology follow-up encounter Atrial fibrillation Shortness of breath Home Medications ?Medication ?Instructions ?Recorded ?Last Taken ?Type Lactobacillus acidophilus 10 100 mmu cells PO DAILY 08/02/25 Unknown History billion cell capsule (NewFlora) cyanocobalamin (vitamin B-12) 1,000 mcg PO DAILY 08/02/25 Unknown History 1,000 mcg capsule digestive enzymes (CompleteGest 1 cap PO DAILY PRN SUPPLEMENT 08/02/25 Unknown History capsule) Allergy/AdvReac Type Severity Reaction Status Date / Time No Known Allergies Allergy Verified 08/24/25 09:25 Family History Mother Cancer cervical Grandmother Myocardial infarction Surgical History H/O inguinal hernia repair Social History Smoking Status: Never smoker alcohol intake: current alcohol intake frequency: holidays/special occasions only Review of Systems (Anesthesia) ROS Narrative System reviewed and no additional complaints, except as documented.
--- NOTE | 2025-08-24 10:00 | COLBX_PTH ---
PATIENT: DONTAE ORTIZ LOC: EN U#:[id number] AGE/SX: 49/M ROOM: RE08/24/[address]: Dr. Carlos Raymond DO : 1975 BED: DIS: 08/24/2025 SPEC #: [id number] RECD: 08/24/25 10:43 STATUS: CHERELLE REKassandra #: [id number] ZAC: 08/24/25 10:[address]: Carlos Raymond DEPT: SURGICAL PATHOLOGY RECD BY: Ze Bailey ENTERED: 08/24/25 14:22 SP TYPE: COLON BX SERJIO DR: Dr. Babita Durán DO Tissues: A - Ileum, NOS B - Cecum, NOS C - SPLENIC FLEXURE Procedures: Surgery Specimen Level IV HEADER OPERATION: Colonoscopy with biopsy PRE-OP DIAGNOSIS: Abnormal bowel habits TISSUE SUBMITTED: A- Terminal ileum biopsy, B- Cecum biopsy, C- Splenic flexure / descending colon MICROSCOPIC DIAGNOSIS A. Terminal ileum, biopsy: * Normal villous architecture with prominent mucosal lymphoid aggregate, favor reactive. B. Cecum, biopsy: * Chronic inflammation with acute cryptitis, crypt abscesses and moderate crypt distortion - see note. * No granulomas or dysplasia seen - see Comment. C. Splenic flexure / descending colon, biopsy: * Chronic inflammation with acute cryptitis, crypt abscesses and moderate crypt distortion - see note. * No granulomas or dysplasia seen - see Comment. COMMENT: The findings in part B and part C raise consideration of inflammatory bowel disease. The histologic differential diagnosis includes infection and diverticular disease-associated colitis. Recommend correlation with clinical, endoscopic, and imaging findings. MICROSCOPIC DESCRIPTION Slides are reviewed. GROSS DESCRIPTION A. Received in fixative is one container labeled with the patient's name and designated Terminal ileum biopsy. The specimen consists of four irregular fragments of caldwell tissue that measure 0.2 to 0.5 cm. The specimen is totally submitted in one cassette. B. Received in fixative is one container labeled with the patient's name and designated Cecum biopsy. The specimen consists of two irregular fragments of caldwell tissue, each measuring 0.4 cm. The specimen is totally submitted in one cassette. C. Received in fixative is one container labeled with the patient's name and designated Splenic flexure / descending colon. The specimen consists of three irregular fragments of caldwell tissue that measure 0.3 to 0.4 cm. The specimen is totally submitted in one cassette. LA 08/24/2025 CPT:66864t2
--- NOTE | 2025-08-24 10:34 | OP.COLON_ITS ---
Patient Name: Sai Velasquez Procedure Date: 08/24/2025 10:08 AM Date of : 1975 Age: 49 Procedure: Colonoscopy Indications: Clinically significant diarrhea of unexplained origin Providers: Carlos Raymond DO Referring MD: Babita Durán Medicines: Monitored Anesthesia Care Patient Profile: This is a 49 year old male. Refer to note in patient chart for documentation of history and physical. Last Colonoscopy: none. The patient's first colonoscopy is today. Complications: No immediate complications. Procedure: Pre-Anesthesia Assessment: - Prior to the procedure, a History and Physical was performed, and patient medications and allergies were reviewed. The patient is competent. The risks and benefits of the procedure and the sedation options and risks were discussed with the patient. All questions were answered and informed consent was obtained. Patient identification and proposed procedure were verified by the physician in the pre-procedure area. Mental Status Examination: alert and oriented. Airway Examination: normal oropharyngeal airway and neck mobility. Respiratory Examination: clear to auscultation. CV Examination: normal. ASA Grade Assessment: II - A patient with mild systemic disease. After reviewing the risks and benefits, the patient was deemed in satisfactory condition to undergo the procedure. The anesthesia plan was to use monitored anesthesia care (MAC). Immediately prior to administration of medications, the patient was re-assessed for adequacy to receive sedatives. The heart rate, respiratory rate, oxygen saturations, blood pressure, adequacy of pulmonary ventilation, and response to care were monitored throughout the procedure. The physical status of the patient was re-assessed after the procedure. After I obtained informed consent, the scope was passed under direct vision. Throughout the procedure, the patient's blood pressure, pulse, and oxygen saturations were monitored continuously. The pediatric colonoscope was introduced through the anus and advanced to the terminal ileum. The colonoscopy was performed without difficulty. The patient tolerated the procedure well. Scope In: 10:15:26 AM Scope Withdrawal Time 0 hours 6 minutes 53 seconds Scope Out: 10:26:05 AM Total Procedure Duration Time 0 hours 10 minutes 39 seconds Findings: The perianal and digital rectal examinations were normal. Inflammation characterized by erosions, erythema, friability and aphthous ulcerations was found in a continuous and circumferential pattern in the descending colon, at the splenic flexure and in the cecum. The anus, the rectum, the recto-sigmoid colon, the sigmoid colon, the transverse colon, the hepatic flexure and the ascending colon were spared. The inflammation was moderate in severity, and when compared to previous examinations, the findings are new. Biopsies were taken with a cold forceps for histology. Verification of patient identification for the specimen was done. Estimated blood loss was minimal. Fluid aspiration for histology, bacterial cultures and Clostridium difficile was performed. Verification of patient identification for the specimen was done. Patchy mild inflammation characterized by erosions was found in the terminal ileum. Biopsies were taken with a cold forceps for histology. Verification of patient identification for the specimen was done. Estimated blood loss was minimal. Impression: - Crohn's disease. Inflammation was found in the descending colon, at the splenic flexure and in the cecum. This was moderate in severity, new compared to previous examinations. Biopsied. - Mild inflammation was found in the ileum secondary to ileitis. Biopsied. Recommendation: - Discharge patient to home. - Resume previous diet. - Continue present medications. - Await pathology results. - Repeat colonoscopy in 1 year for surveillance. Procedure Code(s): --- Professional --- 84441, Colonoscopy, flexible; with biopsy, single or multiple CPT copyright 2021 [employer]. All rights reserved. The codes documented in this report are preliminary and upon plastic boat buffer review may be revised to meet current compliance requirements. Carlos Raymond DO 08/24/2025 10:34:09 AM This report has been signed electronically. Number of Addenda: 0 Note Initiated On: 08/24/2025 10:08 AM
--- NOTE | 2025-08-24 10:35 | OP.PROVAT_ITS ---
08/24/2025 Babita Durán [address] [place] [address] Re : Colonoscopy procedure for Sai Velasquez Dear Dr. Durán This procedure was performed on July. My impressions and recommendations are as follows: Impressions : - Crohn's disease. Inflammation was found in the descending colon, at the splenic flexure and in the cecum. This was moderate in severity, new compared to previous examinations. Biopsied. - Mild inflammation was found in the ileum secondary to ileitis. Biopsied. Recommendations : - Discharge patient to home. - Resume previous diet. - Continue present medications. - Await pathology results. - Repeat colonoscopy in 1 year for surveillance. My findings are described in the full procedure note, which is enclosed. If I can be of further assistance, please feel free to contact me at . Sincerely, Carlos Friend, 08/24/2025 10:34:09 AM This report has been signed electronically.
--- NOTE | 2025-08-24 10:39 | PCM.POST.ANE ---
Anesthesia: Postop Eval I Current Vital Signs Temperature: 97.7 F Pulse Rate: 54 Blood Pressure: 88/61 Respiratory Rate: 16 Pulse Ox: 96 Oxygen Delivery Method: Room Air Assessment Airway patent: Yes Spontaneous unlabored respirations: Yes Mental status: Asleep nausea: No Vomiting: No Anesthesia Complication: No Fluid Hydration Crystalloid volume administer (ml): 500 Total IV fluid infused: 500 Progress Note Anesthesia document: Postop Eval 1 completed: Yes
--- NOTE | 2025-08-24 10:47 | PCM.POSTANE2 ---
Anesthesia Postop Eval I Sum Postop Eval Completion status Anesthesia document: Postop Eval 1 completed: Yes Anesthesia Postop Eval I Summary Anesthesia Postop Eval I Summary: Anesthesia Postop Eval I: Assessment Summary Airway patent Yes 08/24/25 10:40 [email or web address] Spontaneous unlabored Yes 08/24/25 10:40 [email or web address] respirations Mental status Asleep 08/24/25 10:40 [email or web address] nausea No 08/24/25 10:40 [email or web address] Vomiting No 08/24/25 10:40 [email or web address] Anesthesia Postop Eval I: Fluid Summary Crystalloid volume administer 500 08/24/25 10:40 [email or web address] (ml) Colloids volume administered ( ml) Blood Product volume administered (ml) Total IV fluid infused 500 08/24/25 10:40 [email or web address] Anesthesia Postop Eval I: Summary Notes Anesthesia Complication No 08/24/25 10:40 [email or web address] Anesthesia Complication Comment: Post-operative progress note Anesthesia: Postop Eval II Evaluation Mental status: Awake and Calm Pain Level: 0 nausea: No Vomiting: No Complications Anesthesia Complication: No
== END 2025-08-24 11:51 | disposition home or self-care (01) ==
LOC: EN 09:00 → AC 09:01
PROVIDERS: PCP Internal Medicine; Referring Provider Internal Medicine; Visit Provider Internal Medicine Gastroenterology
PROC: 0DJD8ZZ Inspection of Lower Intestinal Tract, Via Natural or Artificial Opening Endoscopic (ICD-10-PCS; CPT 45378; principal; 2025-08-24 09:55)
DX: R19.4 Change in bowel habit (principal); K50.90 Crohn's disease, unspecified, without complications; I48.91 Unspecified atrial fibrillation
CPT/HCPCS: 45380; 87493; 87506; 88305; J2405